=== PATIENT | female | born 1960 | race Caucasian/White ===

== ENCOUNTER → 2017-06-02 | Outpatient (CLI) | payer OTHER ==
--- NOTE | 2017-06-06 07:36 | MM ---
Reason for exam: screening (asymptomatic). Last mammogram was performed 1 year and 4 months ago. History: Patient is postmenopausal. Physical Findings: A clinical breast exam by your physician is recommended on an annual basis and results should be correlated with mammographic findings. MG 3D Screening Mammo W/Cad Bilateral CC and MLO view(s) were taken. Prior study comparison: February 12, 2016, bilateral MG screening mammo w CAD. October 27, 2014, bilateral MG screening mammo w CAD. October 09, 2013, bilateral digital screening mammo w/CAD. There are scattered fibroglandular densities. Finding: There are a few typically benign round calcifications in both breasts. There is no discrete abnormality. ASSESSMENT: Benign, BI-RAD 2 RECOMMENDATION: Routine screening mammogram of both breasts in 1 year.
== END | disposition home or self-care (01) ==
LOC: RADMAMWWP 13:23
PROVIDERS: ATTEND Family Medicine
DX: Z12.31 Encounter for screening mammogram for malignant neoplasm of breast (principal)
CPT/HCPCS: 77063; G0202

== ENCOUNTER 2017-08-04 10:49 | Day surgery (SDC) | payer OTHER ==
[~2017-08-04 10:49] MED LIST: LACTATED RINGERS 1,000 ML IV SCH; LIDOCAINE 1% 20 ML VIAL (10MG/ML) FOR IV START INTRADERMA PRN
[2017-08-04 11:15] VITALS: RESP 16; TEMP 98
[2017-08-04] MEDS ORDERED: PROPOFOL 10 MG/ML 20 ML VIAL IV ONE (12:39)
--- NOTE | 2017-08-04 12:58 | P.PCN ---
Date of Procedure: 08/04/17 Procedure(s) Performed: BRIEF HISTORY: Patient is a 57-year-old pleasant female, scheduled for an elective colonoscopy as a part of evaluation of change in bowel habits. She's lately been having alternating diarrhea and constipation for the last 2 months duration. Denies any rectal bleeding. Her father was just diagnosed with colon cancer at age 70. PROCEDURE PERFORMED: Colonoscopy. PREOPERATIVE DIAGNOSIS: Change in bowel habits and family history of colon cancer. IV sedation per Anesthesia. PROCEDURE: After informed consent was obtained, the patient, was brought into the endoscopy unit. IV sedation was administered by Anesthesia under continuous monitoring. Digital rectal examination was normal. Initially the Olympus CF- 160 flexible video colonoscope was then inserted in the rectum, gradually advanced into the cecum without any difficulty. Careful examination was performed as the scope was gradually being withdrawn. Ileocecal valve and the appendiceal orifice were visualized and appeared normal. Prep was excellent. Mucosa of the cecum, ascending colon, transverse colon, descending colon, sigmoid colon, and rectum appeared normal. Retroflexion was performed in the rectum and no lesions were seen. The patient tolerated the procedure well. IMPRESSION: Normal-appearing colon from rectum to cecum with no evidence of colorectal neoplasia . RECOMMENDATIONS: Findings of this examination were discussed with the patient as well as her family. She was advised to have a repeat screening colonoscopy in 5 years because of the family history of colon cancer..
[2017-08-04 13:14] VITALS: BP 139/81; PULSE 75
== END 2017-08-04 13:34 | disposition home or self-care (01) ==
LOC: ORWHC2ENDO 10:49
PROVIDERS: ATTEND Internal Medicine Gastroenterology
DX: R19.7 Diarrhea, unspecified (principal); Z80.0 Family history of malignant neoplasm of digestive organs; E07.9 Disorder of thyroid, unspecified; M79.7 Fibromyalgia; Z79.899 Other long term (current) drug therapy
CPT/HCPCS: 45378; J2704

== ENCOUNTER → 2017-12-21 | Outpatient (CLI) | payer OTHER ==
--- NOTE | 2017-12-21 22:51 | BD ---
EXAMINATION TYPE: MG DEXA axial skeleton. DATE OF EXAM: 12/21/2017 COMPARISON: NONE CLINICAL HISTORY: 57-year-old female hyperthyroidism Height: 5 FT 3 IN Weight: 203 FRAX RISK QUESTIONS: Alcohol (3 or more units per day): NO Family History (Parent hip fracture): NO Glucocorticoids (More than 3mos): NO (Ex: prednisone, prednisolone, methylprednisolone, dexamethasone, and hydrocortisone). History of Fracture in Adulthood: NO Secondary Osteoporosis: 1. Type 1 Diabetes: NO 2. Hyperthyroidism:YES 3. Menopause before 45: YES 4. Malnutrition: NO 5. Chronic liver disease: NO Rheumatoid Arthritis: NO Current Tobacco Use: NO RISK FACTORS HISTORY OF: Family History of Osteoporosis: YES Active: YES Postmenopausal woman: TOTAL HYST AGE 36 MEDICATIONS: How Long: Additional Medications: CYMBALTA,GABAPENTIN,NORCO Additional History: EXAM MEASUREMENTS: Bone mineral densitometry was performed using the [email or web address] System. Bone mineral density as measured about the Lumbar spine is: ----- L1-L4(G/cm2): 0.875 T Score Values are as follows: ----- L2: -3.7 ----- L3: -2.6 ----- L4: -1.8 ----- L1-L4: -2.5 Bone mineral density has: DECREASED -7.8 % since study of: 2007 Bone mineral density about the R hip (g/cm2): 0.875 Bone mineral density about the L hip (g/cm2): 0.905 T Score values are as follows: -----R Neck: -1.2 -----L Neck: -1.0 -----R Total: -0.2 -----L Total: -0.1 Bone mineral density has: DECREASED -0.7 % since study of: 2007 IMPRESSION: Osteoporosis (T Score less than -2.5 in the lumbar spine). There is increased fracture risk and therapy is usually indicated based on age. Re-Screen 1-2 years. NOTE: T-SCORE=SD OF THE YOUNG ADULT MEAN.
== END | disposition home or self-care (01) ==
LOC: RADBDWWP 15:28
PROVIDERS: ATTEND Family Medicine
DX: M81.0 Age-related osteoporosis without current pathological fracture (principal); E21.3 Hyperparathyroidism, unspecified
CPT/HCPCS: 77080

== ENCOUNTER 2018-03-06 15:15 | Observation (INO) | payer OTHER ==
--- NOTE | 2018-03-06 15:14 | XR ---
EXAMINATION TYPE: XR abdomen 1V DATE OF EXAM: 03/06/2018 3:01 PM CLINICAL HISTORY: Left lower quadrant pain into flank. Interstitial cystitis per order. TECHNIQUE: Two frontal KUB images of the abdomen are obtained. COMPARISON: None. FINDINGS: There is some paucity of small bowel gas. Gas is seen in nondistended stomach. Some gas is visualized in nondistended small bowel loops over the pelvis. Gas and fecal material is seen in non-d istended colon. Right-sided pelvic phleboliths are seen. There is spurring and disc space narrowing a t lumbosacral junction. IMPRESSION: Overall nonspecific but favor nonobstructive bowel gas pattern.
[2018-03-06] MEDS ORDERED: ONDANSETRON 4 MG/2 ML VIAL IVP STA (15:50)
[2018-03-06] MEDS ORDERED: SODIUM CHLORIDE 0.9% 1,000 ML IV ONE (15:50)
[2018-03-06] MEDS ORDERED: KETOROLAC 30 MG/ML 1 ML VIAL IVP STA (15:50)
--- NOTE | 2018-03-06 15:55 | ED ---
General Adult HPI - General Chief complaint: Syncope Stated complaint: Syncope Time Seen by Provider: 03/06/18 15:40 - History of Present Illness Initial comments: Patient is a 57-year-old female with a history of fibromyalgia who presents to the chief complaint of syncope. Patient was in the hospital for an x-ray to evaluate for kidney stone. Patient states that while in x-ray she became very dizzy and lost consciousness briefly. Patient states that she thinks it was secondary to pain. Patient states she's been having left lower quadrant abdominal pain with radiation to her left flank for about [address] Ortiz sent her in for the study. He suspects kidney stone at this time. Patient cannot identify any other inciting incidences. There are no previous episodes. Patient states that sitting up, bending and twisting aggravate her abdominal pain. There are no alleviating factors. Timing is been constant. - Related Data Home Medications Medication Instructions Recorded Confirmed Calcium Carbonate [Calcium] 600 mg PO DAILY 08/02/17 03/06/18 DULoxetine HCL [Cymbalta] 60 mg PO HS 08/02/17 03/06/18 Gabapentin [Neurontin] 400 mg PO PC-LUNCH 08/02/17 03/06/18 Gabapentin [Neurontin] 400 mg PO QAM 08/02/17 03/06/18 Gabapentin [Neurontin] 800 mg PO HS 08/02/17 03/06/18 HYDROcodone/APAP 10-325MG [[place] 1 tab PO Q6H PRN 08/02/17 03/06/18 10-325] DULoxetine HCL [Cymbalta] 30 mg PO QAM 03/06/18 03/06/18 Ergocalciferol [Vitamin D2] 50,000 unit PO TH 03/06/18 03/06/18 [place]-3 Fatty Acids/Fish Oil [Fish 1 cap PO DAILY 03/06/18 03/06/18 Oil 1,000 mg Softgel] Allergies Allergy/AdvReac Type Severity Reaction Status Date / Time No Known Allergies Allergy Verified 03/06/18 15:47 Review of Systems ROS Statement: Those systems with pertinent positive or pertinent negative responses have been documented in the HPI. ROS Other: All systems not noted in ROS Statement are negative. Genitourinary: Reports: hematuria Musculoskeletal: Reports: back pain Neurological: Reports: other (syncope) Past Medical History Past Medical History: Fibromyalgia, Osteoarthritis (OA), Thyroid Disorder Additional Past Medical History / Comment(s): CURRENT: HAS LOST 25 LB & CHANGE IN BOWEL HABITS. HISTORY OF COLON POLYPS. IN THE PROCESS OF RULING OUT RHEUMATOID ARTHRITIS. History of Any Multi-Drug Resistant Organisms: None Reported Past Surgical History: Hysterectomy, Tonsillectomy Additional Past Surgical History / Comment(s): HYST (07-20-1995). Past Anesthesia/Blood Transfusion Reactions: No Reported Reaction, Motion Sickness Past Psychological History: Anxiety Smoking Status: Never smoker Past Alcohol Use History: None Reported Past Drug Use History: None Reported - Past Family History Father Family Medical History: Cancer Additional Family Medical History / Comment(s): COLON, PROSTATE, SKIN CANCER Mother Family Medical History: Cancer Additional Family Medical History / Comment(s): LUNG,. General Exam Limitations: no limitations General appearance: alert, in no apparent distress Head exam: Present: atraumatic, normocephalic Eye exam: Present: PERRL ENT exam: Present: normal exam Neck exam: Present: normal inspection Respiratory exam: Present: normal lung sounds bilaterally. Absent: respiratory distress Cardiovascular Exam: Present: regular rate, normal rhythm GI/Abdominal exam: Present: soft, tenderness (Patient is tenderness in the left lower quadrant. She has positive CVA tenderness on the left). Absent: distended Rectal exam: Present: deferred Extremities exam: Present: normal inspection Back exam: Present: CVA tenderness (L). Absent: CVA tenderness (R) Neurological exam: Present: alert, oriented X3, CN II-XII intact Psychiatric exam: Present: normal affect, normal mood Skin exam: Present: warm, dry, intact Course Vital Signs 03/06/18 15:15 Temperature 97.2 F L Pulse Rate 94 Respiratory 18 Rate Blood Pressure 176/79 O2 Sat by Pulse 97 Oximetry Medical Decision Making - Medical Decision Making Patient presents with a chief complaint of a syncopal episode while in x-ray. She was having a KUB performed for evaluation of kidney stones. Patient states that she thinks she passed out because of the pain. EKG performed at 1538 shows normal sinus rhythm with a rate of 87 bpm. EKG is otherwise unremarkable. Patient will be evaluated with basic labs and sent for a computed tomography scan of the abdomen and pelvis. Neurologic exam is unremarkable. 5:47 PM Lab evaluation of this patient is unremarkable. Urinalysis offered evidence of infection. Computed tomography scan of the abdomen and pelvis shows a 3 mm obstructing ureteral calculus on the left side. Patient still having significant pain and nausea. Decision was made to admit the patient. This case was discussed with Dr. Ortiz accepted admission with consult to urology. I discussed with the patient and her family, they are agreeable. - Lab Data Result diagrams: 03/06/18 15:28 03/06/18 15: Lab Results 03/06/18 03/06/18 03/06/18 Range/Units 15:28 15:28 16:04 WBC 7.3 (3.8-10.6) k/uL RBC 4.62 (3.80-5.40) m/uL Hgb 14.0 (11.4-16.0) gm/dL Hct 39.9 (34.0-46.0) % MCV 86.4 (80.0-100.0) fL MCH 30.3 (25.0-35.0) pg MCHC 35.0 (31.0-37.0) g/dL RDW 13.3 (11.5-15.5) % Plt Count 240 (150-450) k/uL Neutrophils % 58 % Lymphocytes % 29 % Monocytes % 7 % Eosinophils % 2 % Basophils % 1 % Neutrophils # 4.2 (1.3-7.7) k/uL Lymphocytes # 2.1 (1.0-4.8) k/uL Monocytes # 0.5 (0-1.0) k/uL Eosinophils # 0.2 (0-0.7) k/uL Basophils # 0.1 (0-0.2) k/uL Sodium 143 (137-145) mmol/L Potassium 3.8 (3.5-5.1) mmol/L Chloride 104 (98-107) mmol/L Carbon Dioxide 25 (22-30) mmol/L Anion Gap 14 mmol/L BUN 17 (7-17) mg/dL Creatinine 0.70 (0.52-1.04) mg/dL Est GFR (CKD-EPI)AfAm >90 (>60 ml/min/1.73 sqM) Est GFR (CKD-EPI)NonAf >90 (>60 ml/min/1.73 sqM) Glucose 85 (74-99) mg/dL Calcium 9.9 (8.4-10.2) mg/dL Total Bilirubin 0.5 (0.2-1.3) mg/dL AST 29 (14-36) U/L ALT 38 (9-52) U/L Alkaline Phosphatase 102 (38-126) U/L Total Protein 7.1 (6.3-8.2) g/dL Albumin 4.5 (3.5-5.0) g/dL Lipase 101 (23-300) U/L Urine Color Yellow Urine Appearance Clear (Clear) Urine pH 7.0 (5.0-8.0) Ur Specific [place] 1.010 (1.001-1.035) Urine Protein Trace H (Negative) Urine Glucose (UA) Negative (Negative) Urine Ketones Negative (Negative) Urine Blood Large H (Negative) Urine Nitrite Negative (Negative) Urine Bilirubin Negative (Negative) Urine Urobilinogen <2.0 (<2.0) mg/dL Ur Leukocyte Esterase Trace H (Negative) Urine RBC >182 H (0-5) /hpf Urine WBC 39 H (0-5) /hpf Ur Squamous Epith Cells 3 (0-4) /hpf Urine Mucus Rare H (None) /hpf Disposition Clinical Impression: Syncope, Ureteral calculus, left, Intractable abdominal pain Disposition: ADMITTED IP TO THIS [facility] Condition: Good Is patient prescribed a controlled substance at d/c from ED?: No Referrals: Parish Arnold Jr, [Primary Care Provider] - 1-2 days Decision to Admit Reason: Admit from EC - Out of Hospital Transfer - Req. Specs Out of Hospital Transfer - Requested Specifics: Other Non-Acute
[2018-03-06 16:02] LABS: Basophils # (A) 0.1 k/uL (0-0.2); Basophils % (A) 1 %; Eosinophils # (A) 0.2 k/uL (0-0.7); Eosinophils % (A) 2 %; HCT 39.9 % (34.0-46.0); Lymphocytes # (A) 2.1 k/uL (1.0-4.8); Lymphocytes % (A) 29 %; MCH 30.3 pg (25.0-35.0); MCV 86.4 fL (80.0-100.0); Mean Platelet Volume 7.5; Monocytes # (A) 0.5 k/uL (0-1.0); Monocytes % (A) 7 %; Neutrophils # (A) 4.2 k/uL (1.3-7.7); Neutrophils % (A) 58 %; Platelet Count 240 k/uL (150-450); RBC 4.62 m/uL (3.80-5.40); RDW 13.3 % (11.5-15.5); WBC 7.3 k/uL (3.8-10.6)
[2018-03-06 16:11] LABS: ALT 38 U/L (9-52); AST 29 U/L (14-36); Albumin 4.5 g/dL (3.5-5.0); Alkaline Phosphatase 102 U/L (38-126); Anion Gap 14 mmol/L; Blood Urea Nitrogen 17 mg/dL (7-17); Calcium 9.9 mg/dL (8.4-10.2); Carbon Dioxide 25 mmol/L (22-30); Chloride 104 mmol/L (98-107); Glucose 85 mg/dL (74-99); Lipase 101 U/L (23-300); Potassium 3.8 mmol/L (3.5-5.1); Sodium 143 mmol/L (137-145); Total Bilirubin 0.5 mg/dL (0.2-1.3); Total Protein 7.1 g/dL (6.3-8.2)
[2018-03-06 16:25] LABS: Appearance,Urine Clear (Clear); Bilirubin,Urine Negative (Negative); Blood,Urine Large (Negative); Color,Urine Yellow; Glucose,Urine (UA) Negative (Negative); Ketones,Urine Negative (Negative); Leukocyte Esterase,Urine Trace (Negative); Mucus,Urine Rare /hpf; Nitrite,Urine Negative (Negative); Protein,Urine Trace (Negative); RBC,Urine >182 /hpf (0-5); Squamous Epithelial Cell,Urine 3 /hpf (0-4); Urobilinogen,Urine <2.0 mg/dL (<2.0); WBC,Urine 39 /hpf (0-5)
--- NOTE | 2018-03-06 16:52 | CT ---
EXAMINATION TYPE: CT renal stones wo con DATE OF EXAM: 03/06/2018 COMPARISON: NONE HISTORY: LLQ pain and hematuria CT DLP: 1068.9 mGycm Examination of the solid and hollow viscera is limited given the lack of contrast. FINDINGS: LUNG BASES: No evidence for nodule. No evidence for infiltrate. LIVER/GB: Moderate hepatic steatosis. The gallbladder is unremarkable. No space-occupying hepatic les ion. PANCREAS: No pancreatic mass identified. No inflammatory process seen. SPLEEN: No evidence for splenomegaly. No intrasplenic lesions seen. ADRENALS: No adrenal nodules identified. No evidence for thickening. KIDNEYS: There is mild left-sided hydronephrosis secondary to a distal left ureteral calculus measuri ng 3 mm identified on axial image 117 sequence3. 2 mm nonobstructing calculus right kidney. BOWEL: Appendix has a normal appearance. No evidence of bowel obstruction. No inflammatory process. Lymph nodes: No evidence for adenopathy greater than 1 cm. Abdominal aorta: Atheromatous changes seen. No evidence for aneurysm. Genital organs: No significant abnormality. Other: No significant abnormality. Degenerative changes lumbar spine. Mild curvature convex to the ri ght. IMPRESSION: There is mild left-sided hydronephrosis secondary to a distal left ureteral calculus measuring 3 mm i dentified on axial image 117 sequence3.
[2018-03-06] MEDS ORDERED: MORPHINE SULFATE 4 MG/ML SYRINGE IV PRN (17:44)
[2018-03-06] MEDS ORDERED: NALOXONE 0.4 MG/ML 1 ML VIAL IV PRN (17:44)
[2018-03-06] MEDS ORDERED: cefTRIAXone IN SWFI 1,000 MG/10 ML SYRINGE IVP ONE (17:45)
[2018-03-06] MEDS: SODIUM CHLORIDE 0.9% 1,000 ML IV SCH ×2 (18:34→23:46)
[2018-03-06 19:36] VITALS: BMI 34.3
[2018-03-06] MEDS ORDERED: TAMSULOSIN 0.4 MG CAP.ER.24H PO STA (20:08)
[2018-03-06] MEDS ORDERED: GABAPENTIN 400 MG CAP PO SCH (21:15)
[2018-03-06] MEDS: KETOROLAC 30 MG/ML 1 ML VIAL IVP PRN (21:15)
[2018-03-06] MEDS ORDERED: DULoxetine HCL 60 MG CAPSULE.DR PO SCH (21:15)
[2018-03-06] MEDS: MORPHINE ORAL SOLN 10 MG/5 ML CUP PO PRN (22:45)
[2018-03-07] MEDS: KETOROLAC 30 MG/ML 1 ML VIAL IVP PRN ×2 (02:19→09:34)
[2018-03-07] MEDS: MORPHINE ORAL SOLN 10 MG/5 ML CUP PO PRN ×4 (03:42→15:04)
[2018-03-07 08:04] VITALS: BP 110/69; PULSE 76; RESP 16; TEMP 97.6
[2018-03-07 08:29] LABS: Basophils # (A) 0.1 k/uL (0-0.2); Basophils % (A) 2 %; Eosinophils # (A) 0.2 k/uL (0-0.7); Eosinophils % (A) 4 %; HCT 37.6 % (34.0-46.0); HGB 12.8 gm/dL (11.4-16.0); Lymphocytes # (A) 2.3 k/uL (1.0-4.8); Lymphocytes % (A) 41 %; MCH 29.8 pg (25.0-35.0); MCV 87.6 fL (80.0-100.0); Mean Platelet Volume 7.4; Monocytes # (A) 0.4 k/uL (0-1.0); Monocytes % (A) 7 %; Neutrophils # (A) 2.5 k/uL (1.3-7.7); Neutrophils % (A) 44 %; Platelet Count 230 k/uL (150-450); RDW 13.4 % (11.5-15.5); WBC 5.7 k/uL (3.8-10.6)
[2018-03-07 08:48] LABS: Anion Gap 11 mmol/L; Blood Urea Nitrogen 13 mg/dL (7-17); Calcium 8.9 mg/dL (8.4-10.2); Carbon Dioxide 30 mmol/L (22-30); Chloride 103 mmol/L (98-107); Glucose 100 mg/dL (74-99); Potassium 3.7 mmol/L (3.5-5.1); Sodium 144 mmol/L (137-145)
[2018-03-07] MEDS ORDERED: GABAPENTIN 400 MG CAP PO SCH ×2 (09:00→13:30)
[2018-03-07] MEDS ORDERED: DULoxetine HCL 30 MG CAPSULE.DR PO SCH (09:00)
[2018-03-07] MEDS ORDERED: cefTRIAXone IN SWFI 1,000 MG/10 ML SYRINGE IVP SCH (09:00)
[2018-03-07] MEDS: SODIUM CHLORIDE 0.9% 1,000 ML IV SCH (09:40)
--- NOTE | 2018-03-07 12:58 | P.GSCN ---
History of Present Illness Consult date: 03/07/18 Reason for Consult: Left ureteral calculus History of present illness: The patient is a 57-year-old female first developed crampy pains in the suprapubic region 2 or 3 days ago. The pain seemed to shift to the left lower quadrant and was associated with nausea and an episode of gross hematuria. She was evaluated by Dr. Ortiz and a computed tomography scan of the abdomen and pelvis without IV contrast was obtained yesterday. This showed mild left hydronephrosis secondary to to what was described as a 3 mm distal left ureteral calculus. Patient apparently experienced severe pain and syncopal episode following the computed tomography scan and was evaluated in the emergency room. She was afebrile. Her white blood count was 7300. BUN/ creatinine was 17/0.7. Urinalysis showed 39 white cells greater than 182 red cells 3 epithelial cells rare mucus and was negative for nitrite. The patient was felt to have possible sepsis from a urinary tract infection and was started on ceftriaxone and admitted for further evaluation. She continues to have intermittent pain in the left flank which has been had with IV morphine and ketorlac. She has remained afebrile The patient has no previous history of urolithiasis. She says she normally voids every 3-5 hours during the day and once or twice at night. This pattern has not changed recently. She denies fever or chills. She does have a history of hypercalcemia secondary to either parathyroid hyperplasia or parathyroid nodules and underwent removal of 2 parathyroid glands at the [facility]. Review of Systems - Constitutional Reports sweats, Denies chills, Denies fever - Cardiovascular Denies chest pain, Denies shortness of breath - Respiratory Denies cough - Gastrointestinal Reports as per HPI, Denies constipation - Genitourinary Genitourinary: Reports as per HPI Past Medical History Past Medical History: Fibromyalgia, Osteoarthritis (OA), Thyroid Disorder Additional Past Medical History / Comment(s): CURRENT: HAS LOST 25 LB & CHANGE IN BOWEL HABITS. HISTORY OF COLON POLYPS. IN THE PROCESS OF RULING OUT RHEUMATOID ARTHRITIS. History of hyperparathyroidism treated with removal of 2 parathyroid glands History of Any Multi-Drug Resistant Organisms: None Reported Past Surgical History: Hysterectomy, Tonsillectomy Additional Past Surgical History / Comment(s): HYST (07-20-1995). Past Anesthesia/Blood Transfusion Reactions: No Reported Reaction, Motion Sickness Past Psychological History: Anxiety Smoking Status: Never smoker Past Alcohol Use History: None Reported Past Drug Use History: None Reported - Past Family History Father Family Medical History: Cancer Additional Family Medical History / Comment(s): COLON, PROSTATE, SKIN CANCER Mother Family Medical History: Cancer Additional Family Medical History / Comment(s): LUNG,. Medications and Allergies Home Medications Medication Instructions Recorded Confirmed Type Calcium Carbonate [Calcium] 600 mg PO DAILY 08/02/17 03/06/18 History DULoxetine HCL [Cymbalta] 60 mg PO HS 08/02/17 03/06/18 History Gabapentin [Neurontin] 400 mg PO PC-LUNCH 08/02/17 03/06/18 History Gabapentin [Neurontin] 400 mg PO QAM 08/02/17 03/06/18 History Gabapentin [Neurontin] 800 mg PO HS 08/02/17 03/06/18 History HYDROcodone/APAP 10-325MG [[place] 1 tab PO Q6H PRN 08/02/17 03/06/18 History 10-325] DULoxetine HCL [Cymbalta] 30 mg PO QAM 03/06/18 03/06/18 History Ergocalciferol [Vitamin D2] 50,000 unit PO TH 03/06/18 03/06/18 History [place]-3 Fatty Acids/Fish Oil [Fish 1 cap PO DAILY 03/06/18 03/06/18 History Oil 1,000 mg Softgel] Allergies Allergy/AdvReac Type Severity Reaction Status Date / Time No Known Allergies Allergy Verified 03/06/18 15:47 Surgical - Exam Vital Signs Temp Pulse Resp BP Pulse Ox 97.2 F L 94 18 176/79 97 03/06/18 15:15 03/06/18 15:15 03/06/18 15:15 03/06/18 15:15 03/06/18 15:15 - General well developed, moderate distress - Neck no masses, no lymphadectomy - Respiratory normal respiratory effort - Abdomen Abdomen: tender (Right lower quadrant and left lower quadrant) Results - Labs 03/07/18 08:00 03/07/18 08:00 Abnormal Lab Results - Last 24 Hours (Table) 03/06/18 03/07/18 Range/Units 16:04 08:00 Glucose 100 H (74-99) mg/dL Urine Protein Trace H (Negative) Urine Blood Large H (Negative) Ur Leukocyte Esterase Trace H (Negative) Urine RBC >182 H (0-5) /hpf Urine WBC 39 H (0-5) /hpf Urine Mucus Rare H (None) /hpf Diabetes panel 03/06/18 03/07/18 Range/Units 15:28 08:00 Sodium 143 144 (137-145) mmol/L Potassium 3.8 3.7 (3.5-5.1) mmol/L Chloride 104 103 (98-107) mmol/L Carbon Dioxide 25 30 (22-30) mmol/L BUN 17 13 (7-17) mg/dL Creatinine 0.70 0.58 (0.52-1.04) mg/dL Glucose 85 100 H (74-99) mg/dL Calcium 9.9 8.9 (8.4-10.2) mg/dL AST 29 (14-36) U/L ALT 38 (9-52) U/L Alkaline Phosphatase 102 (38-126) U/L Total Protein 7.1 (6.3-8.2) g/dL Albumin 4.5 (3.5-5.0) g/dL Calcium panel 03/06/18 03/07/18 Range/Units 15:28 08:00 Calcium 9.9 8.9 (8.4-10.2) mg/dL Albumin 4.5 (3.5-5.0) g/dL Pituitary panel 03/06/18 03/07/18 Range/Units 15:28 08:00 Sodium 143 144 (137-145) mmol/L Potassium 3.8 3.7 (3.5-5.1) mmol/L Chloride 104 103 (98-107) mmol/L Carbon Dioxide 25 30 (22-30) mmol/L BUN 17 13 (7-17) mg/dL Creatinine 0.70 0.58 (0.52-1.04) mg/dL Glucose 85 100 H (74-99) mg/dL Calcium 9.9 8.9 (8.4-10.2) mg/dL Adrenal panel 03/06/18 03/07/18 Range/Units 15:28 08:00 Sodium 143 144 (137-145) mmol/L Potassium 3.8 3.7 (3.5-5.1) mmol/L Chloride 104 103 (98-107) mmol/L Carbon Dioxide 25 30 (22-30) mmol/L BUN 17 13 (7-17) mg/dL Creatinine 0.70 0.58 (0.52-1.04) mg/dL Glucose 85 100 H (74-99) mg/dL Calcium 9.9 8.9 (8.4-10.2) mg/dL Total Bilirubin 0.5 (0.2-1.3) mg/dL AST 29 (14-36) U/L ALT 38 (9-52) U/L Alkaline Phosphatase 102 (38-126) U/L Total Protein 7.1 (6.3-8.2) g/dL Albumin 4.5 (3.5-5.0) g/dL Assessment and Plan Assessment: Left flank pain-probably secondary to distal left ureteral calculus. I personally reviewed the patient's computed tomography scan and unfortunately she has several calcifications in the pelvis which could be calculi and the ureter does not appear dilated down to this region. There is a 5 mm diameter calcification near the pelvic brim and a 3 mm calcification within the distal 4- 5 cm of the left ureter, either of which could be an obstructive calculus. The patient's urinalysis is not conclusive for urinary tract infection and may have been contaminated by vaginal fluid. Patient has no clinical signs of sepsis as she has remained afebrile and her white blood count is not particularly elevated. The patient will be treated with analgesics and tamsulosin in hopes that the calculus will pass spontaneously. She will be continued on ceftriaxone pending results of her urine culture. The patient expressed a wish to go home as soon as possible as her had a hip replacement 2 weeks ago and a daughter recently delivered a baby.
--- NOTE | 2018-03-07 14:24 | P.HPIM ---
History of Present Illness H&P Date: 03/07/18 Chief Complaint: syncope 57-year-old female who was at [facility] on 03/06/2018 to have xrays completed that were ordered by her PCP, Dr. Ortiz as patient has been having left lower abdominal pain and left flank pain x 2 days. While in radiology, the patient states she started to feel dizzy and had a syncopal episode. She was transferred to the emergency room for further evaluation. The patient has a history of fibromyalgia, osteoarthritis, and hypothyroidism. She also has a history of anxiety. She is a nonsmoker. Abdominal x-ray: Overall nonspecific but favor nonobstructive bowel gas pattern Renal CT: Mild left-sided hydronephrosis secondary to a distal left ureteral calculus measuring 3 mm Laboratory data: WBC 7.3. Hemoglobin 14.0. Platelet count 240. Sodium 143. Potassium 3.8. BUN 17. Creatinine 0.70. Urinalysis reveals: Clear yellow urine, trace proteinuria, large blood, trace leukocyte esterase, RBC greater than 182, WBC 39, squamous epithelial cells 3, rare mucus The patient was admitted to the hospital under the care of Dr. Ortiz. Consultations were placed to urology. Review of Systems GENERAL: Patient denies fever. Denies chills. EYES: Denies blurred vision. Denies vision changes. Denies eye pain. EARS, NOSE, MOUTH, & THROAT: Denies headache. Denies sore throat. Denies ear pain. RESPIRATORY: Denies cough. Denies shortness of breath. Denies sputum production. Denies hemoptysis. CARDIOVASCULAR: Denies chest pain or pressure. Denies palpitations. Denies arrhythmias. GASTROINTESTINAL: Positive for left flank pain x 2-3 days. Denies diarrhea. Denies constipation. Denies nausea. Denies vomiting. Denies heartburn. Denies blood in the stool. GENITOURINARY: Denies urinary frequency. Denies burning. Denies dysuria. Denies cloudy urine. Denies blood in the urine. MUSCULOSKELETAL: Denies myalgias. Denies joint swelling. Denies decreased range of motion beyond patients baseline. INTEGUMENTARY: Denies pruitis. Denies rash. PSYCHIATRIC: Denies suicidal or homicial ideations. ENDOCRINE: Denies weight change. Denies polydipsia. Denies polyuria. HEMATOLOGIC: Denies bleeding disorders. Past Medical History Past Medical History: Fibromyalgia, Osteoarthritis (OA), Thyroid Disorder Additional Past Medical History / Comment(s): CURRENT: HAS LOST 25 LB & CHANGE IN BOWEL HABITS. HISTORY OF COLON POLYPS. IN THE PROCESS OF RULING OUT RHEUMATOID ARTHRITIS. History of Any Multi-Drug Resistant Organisms: None Reported Past Surgical History: Hysterectomy, Tonsillectomy Additional Past Surgical History / Comment(s): HYST (07-20-1995). Past Anesthesia/Blood Transfusion Reactions: No Reported Reaction, Motion Sickness Past Psychological History: Anxiety Smoking Status: Never smoker Past Alcohol Use History: None Reported Past Drug Use History: None Reported - Past Family History Father Family Medical History: Cancer Additional Family Medical History / Comment(s): COLON, PROSTATE, SKIN CANCER Mother Family Medical History: Cancer Additional Family Medical History / Comment(s): LUNG,. Medications and Allergies Home Medications Medication Instructions Recorded Confirmed Type DULoxetine HCL [Cymbalta] 60 mg PO HS 08/02/17 03/06/18 History Gabapentin [Neurontin] 400 mg PO PC-LUNCH 08/02/17 03/06/18 History Gabapentin [Neurontin] 400 mg PO QAM 08/02/17 03/06/18 History Gabapentin [Neurontin] 800 mg PO HS 08/02/17 03/06/18 History HYDROcodone/APAP 10-325MG [[place] 1 tab PO Q6H PRN 08/02/17 03/06/18 History 10-325] DULoxetine HCL [Cymbalta] 30 mg PO QAM 03/06/18 03/06/18 History Ergocalciferol [Vitamin D2 50,000 unit PO TH 03/06/18 03/06/18 History (DRISDOL)] [place]-3 Fatty Acids/Fish Oil [Fish 1 cap PO DAILY 03/06/18 03/06/18 History Oil 1,000 mg Softgel] Ondansetron Odt [Zofran Odt] 4 mg PO Q8HR PRN #30 tab 03/07/18 Rx Allergies Allergy/AdvReac Type Severity Reaction Status Date / Time No Known Allergies Allergy Verified 03/06/18 15:47 Physical Exam Vitals: Vital Signs Temp Pulse Pulse Resp BP BP Pulse Ox 03/07/18 07:30 97.6 F 76 16 110/69 95 03/07/18 00:00 80 18 05/01/18 21:55 97.7 F 80 18 131/75 95 03/06/18 18:39 97.8 F 90 18 129/60 95 03/06/18 15:15 97.2 F L 94 18 176/79 97 Intake and Output 03/06/18 03/07/18 03/07/18 22:59 06:59 14:59 Intake Total 150 900 Balance 150 900 Intake: Intake, IV Titration 150 900 Amount Sodium Chloride 0.9% 1, 150 900 000 ml @ 100 mls/hr IV . Q10H [facility] Rx#:[id number] Other: Voiding Method Toilet Toilet # Voids 2 Weight 90.718 kg 90.718 kg GENERAL: This is a 57-year-old female in no apparent distress at the time of examination. Pleasant and cooperative. HEENT: Head is atraumatic, normocephalic. Pupils are equal, round, and reactive to light. Sclerae anicteric. Conjunctivae are clear. Mucus membranes of the mouth are moist. Neck is supple. RESPIRATORY: Clear to ausculation. No wheezes, rales, or rhonchi. No use of accessory muscles. Patient maintaining oxygen saturation greater than 92%. No chest wall tenderness is noted on palpation or with deep breathing. CARDIOVASCULAR: Regular rate and rhythm. S1 and S2 noted. No systolic or diastolic murmur auscultated. No JVD noted. No S3 or S4 noted. GASTROINTESTINAL: Left CVA tenderness noted. No distention noted. Abdomen soft and round. Normal active bowel sounds auscultated x 4 quadrants. No pain or tenderness noted upon palpation. INTEGUMENTARY: No cyanosis. No jaundice. No rashes noted. No cellulitis noted. EXTREMITIES: 2+ peripheral pulses. No evidence of peripheral edema. No calf tenderness noted. NEUROLOGIC: Cranial nerves II-XII intact. PSYCHIATRIC: Awake, alert, and oriented X 3. Appropriate affect. Intact judgement and insight. Results CBC & Chem 7: 03/07/18 08:00 03/07/18 08:00 Labs: Abnormal Lab Results - Last 24 Hours (Table) 03/06/18 03/07/18 Range/Units 16:04 08:00 Glucose 100 H (74-99) mg/dL Urine Protein Trace H (Negative) Urine Blood Large H (Negative) Ur Leukocyte Esterase Trace H (Negative) Urine RBC >182 H (0-5) /hpf Urine WBC 39 H (0-5) /hpf Urine Mucus Rare H (None) /hpf Thrombosis Risk Factor Assmnt - Choose All That Apply Any of the Below Risk Factors Present?: Yes Each Factor Represents 1 point: Age 41-60 years Thrombosis Risk Factor Assessment Total Risk Factor Score: 1 Thrombosis Risk Factor Assessment Level: Low Risk Assessment and Plan Plan: ASSESSMENT: Syncopal episode prior to admission, possibly related to severe pain Mild left-sided hydronephrosis secondary to a distal left ureteral calculus measuring 3 mm Pyuria, possible urinary tract infection, awaiting culture Fibromyalgia Osteoarthritis Hypothyroidism Anxiety, unspecified Obesity: BMI 34.3 PLAN: Urology on consult. Appreciate recommendations and input Continue Rocephin 1gram Q24 hours Home meds as appropriate Monitor labs GI prophylaxis: Protonix 40 mg PO Daily DVT prophylaxis: SCDs to bilateral LE Monitor vital signs and address as appropriate Discharge planning: Patient to return home when stable Further recommendations pending patient's course Nurse practitioner note has been reviewed by physician. Signing provider agrees with the documented findings, assessment, and plan of care.
--- NOTE | 2018-03-07 14:29 | P.DS ---
Providers Date of admission: 03/06/18 18:09 Expected date of discharge: 03/07/18 Attending physician: Viktor Kang Consults: 03/06/18 17:45 Consult Physician Routine Consulting Provider: Mal Neri Consult Reason/Comments: UTI, obstructing ureteral calculus Do you want consulting provider notified?: Yes Primary care physician: [facility] Course: 57-year-old female who was at [facility] on 03/06/2018 to have xrays completed that were ordered by her PCP, Dr. Kang as patient has been having left lower abdominal pain and left flank pain x 2 days. While in radiology, the patient states she started to feel dizzy and had a syncopal episode. She was transferred to the emergency room for further evaluation. The patient has a history of fibromyalgia, osteoarthritis, and hypothyroidism. She also has a history of anxiety. She is a nonsmoker. Abdominal x-ray: Overall nonspecific but favor nonobstructive bowel gas pattern Renal CT: Mild left-sided hydronephrosis secondary to a distal left ureteral calculus measuring 3 mm Laboratory data: WBC 7.3. Hemoglobin 14.0. Platelet count 240. Sodium 143. Potassium 3.8. BUN 17. Creatinine 0.70. Urinalysis reveals: Clear yellow urine, trace proteinuria, large blood, trace leukocyte esterase, RBC greater than 182, WBC 39, squamous epithelial cells 3, rare mucus The patient was evaluated by urology during hospitalization. Patient received a one time dose of Flomax per Dr. Ricci. The hope is that the stone will pass spontaneously. The patient was deemed stable for discharge per Dr. Kang. She is to follow up on an outpatient basis with Dr. Kang and urologist. She is to continue her Morris for pain. Dr. Kang's office to call in prescription for Morris as patient states she needs a refill. Zofran ODT sent to patients preferred pharmacy. She is to discontinue calcium supplements at this time. Patient received Rocephin in the hospital. She can follow up with urine culture results at PCP office for follow up and does not require a rx for abx per dr. kang DISCHARGE DIAGNOSIS: Syncopal episode prior to admission, possibly related to severe pain Mild left-sided hydronephrosis secondary to a distal left ureteral calculus measuring 3 mm Pyuria, possible urinary tract infection, awaiting culture, no evidence of sepsis Fibromyalgia Osteoarthritis Hypothyroidism Anxiety, unspecified Obesity: BMI 34.3 Nurse practitioner note has been reviewed by physician. Signing provider agrees with the documented findings, assessment, and plan of care. Patient Condition at Discharge: Good Plan - Discharge Summary Discharge Rx Participant: Yes New Discharge Prescriptions: New Ondansetron Odt [Zofran Odt] 4 mg PO Q8HR PRN #30 tab PRN Reason: Nausea Continue Gabapentin [Neurontin] 800 mg PO HS HYDROcodone/APAP 10-325MG [[place] 10-325] 1 tab PO Q6H PRN PRN Reason: Pain Gabapentin [Neurontin] 400 mg PO QAM Gabapentin [Neurontin] 400 mg PO PC-LUNCH DULoxetine HCL [Cymbalta] 60 mg PO HS [place]-3 Fatty Acids/Fish Oil [Fish Oil 1,000 mg Softgel] 1 cap PO DAILY Ergocalciferol [Vitamin D2 (DRISDOL)] 50,000 unit PO TH DULoxetine HCL [Cymbalta] 30 mg PO QAM Discontinued Calcium Carbonate [Calcium] 600 mg PO DAILY Discharge Medication List DULoxetine HCL [Cymbalta] 60 mg PO HS 08/02/17 [History] Gabapentin [Neurontin] 400 mg PO PC-LUNCH 08/02/17 [History] Gabapentin [Neurontin] 400 mg PO QAM 08/02/17 [History] Gabapentin [Neurontin] 800 mg PO HS 08/02/17 [History] HYDROcodone/APAP 10-325MG [[place] 10-325] 1 tab PO Q6H PRN 08/02/17 [History] DULoxetine HCL [Cymbalta] 30 mg PO QAM 03/06/18 [History] Ergocalciferol [Vitamin D2 (DRISDOL)] 50,000 unit PO TH 03/06/18 [History] [place]-3 Fatty Acids/Fish Oil [Fish Oil 1,000 mg Softgel] 1 cap PO DAILY [History] Ondansetron Odt [Zofran Odt] 4 mg PO Q8HR PRN #30 tab 03/07/18 [Rx] Follow up Appointment(s)/Referral(s): Parish Arnold Jr, DO [Primary Care Provider] - 2 Weeks Alexander Ricci MD [STAFF PHYSICIAN] - 1 Week Activity/Diet/Wound Care/Special Instructions: Dr. Tran office will send in a new prescription for your Morris Discontinue Calcium until kidney stone resolves Discharge Disposition: HOME SELF-CARE
[2018-03-08] MEDS ORDERED: PANTOPRAZOLE 40 MG TABLET PO SCH (07:30)
[2018-03-08] MEDS ORDERED: ERGOCALCIFEROL 50,000 UNIT CAP PO SCH (09:00)
== END 2018-03-07 15:24 | disposition home or self-care (01) ==
LOC: EC 15:15 → INTOOBSV 18:09 → 5MS5E 18:09 → UNDODISIN 03-07 15:24
PROVIDERS: ADMIT Family Medicine; ATTEND Family Medicine
DX: N13.2 Hydronephrosis with renal and ureteral calculous obstruction (principal); R55 Syncope and collapse; E03.9 Hypothyroidism, unspecified; M79.7 Fibromyalgia; M19.91 Primary osteoarthritis, unspecified site; F41.9 Anxiety disorder, unspecified; E66.9 Obesity, unspecified; Z68.34 Body mass index [BMI] 34.0-34.9, adult; Z79.899 Other long term (current) drug therapy; Z86.010 Personal history of colon polyps; Z90.710 Acquired absence of both cervix and uterus; Z80.42 Family history of malignant neoplasm of prostate; Z80.0 Family history of malignant neoplasm of digestive organs; Z80.1 Family history of malignant neoplasm of trachea, bronchus and lung; Z80.8 Family history of malignant neoplasm of other organs or systems
CPT/HCPCS: 96376 ×2; 96361; 96374; 96375; 99285; 36415; 97161; 80053; 80048; 83690; 85025 ×2; 81001; 74018; 74150; G0378 ×2; J2270; J2405; J0696 ×2; J1885 ×2

== ENCOUNTER → 2018-04-30 | Outpatient (CLI) | payer OTHER ==
--- NOTE | 2018-04-30 23:01 | MR ---
MRI CERVICAL SPINE: CLINICAL HISTORY: Cervical disc disorder C6-C7 level with radiculopathy per order. Headache with neck pain for 6 months causing pain and weakness into both arms and fingers per patient. TECHNIQUE: Multiplanar, multisequence imaging of the cervical spine is performed without IV contrast. COMPARISON: None. FINDINGS: Sagittal images of the cervical spine show the craniocervical junction to appear within nor mal limits. There is 1.2 cm mucous retention cyst or polyp in the inferior right maxillary sinus axia l image 12. The cervical and upper thoracic spinal cord is normal in course, caliber, and signal. Ve rtebral alignment is straightened with slight grade 1 retrolisthesis of C5 on C6. There is mild disc space narrowing C6-C7 level. The vertebral body and intravertebral disk heights otherwise are normal. Small posterior disc herniations are facing anterior thecal sac at C5-C6 and C6-C7 levels on sagitta l images. Mild to moderate anterior spurring C5-C6 and C6-C7 levels is present. The bone marrow signa l intensity is within normal limits. Small hemangioma posterior inferior T2 vertebra is noted. Axial images show the C2-C3, C3-C4, and C4-C5 levels all to appear within normal limits. Axial images at C5-C6 level broad-based left paracentral disc protrusion effacing anterior thecal sac and causing mild bilateral neural foraminal narrowing. Axial images at C6-C7 level show lobulated posterior disc protrusion effacing the anterior thecal sac and causing severe left and mild to moderate right-sided neural foraminal narrowing. Axial images at C7-T1 level are felt to show mild bilateral neural foraminal narrowing due to foramin al spur disc complexes axial image 7. IMPRESSION: Multilevel degenerative changes in cervical spine most prominent at C5-C6 and C6-C7 level s as detailed above.
== END | disposition home or self-care (01) ==
LOC: RADMRIMAIN 18:39
PROVIDERS: ATTEND Family Medicine
DX: M48.02 Spinal stenosis, cervical region (principal); M99.71 Connective tissue and disc stenosis of intervertebral foramina of cervical region; M50.122 Cervical disc disorder at C5-C6 level with radiculopathy; M47.22 Other spondylosis with radiculopathy, cervical region
CPT/HCPCS: 72141

== ENCOUNTER → 2018-06-18 | Outpatient (CLI) | payer OTHER ==
--- NOTE | 2018-06-25 12:04 | MM ---
Reason for exam: screening (asymptomatic). Last mammogram was performed 1 year and 1 month ago. History: Patient is postmenopausal. Physical Findings: A clinical breast exam by your physician is recommended on an annual basis and results should be correlated with mammographic findings. MG Screening Mammo w CAD Bilateral CC and MLO view(s) were taken. Prior study comparison: June 02, 2017, bilateral MG 3d screening mammo w/cad. February 12, 2016, bilateral MG screening mammo w CAD. There are scattered fibroglandular densities. There is no discrete abnormality. No significant changes when compared with prior studies. ASSESSMENT: Negative, BI-RAD 1 RECOMMENDATION: Routine screening mammogram of both breasts in 1 year.
== END | disposition home or self-care (01) ==
LOC: RADMAMWWP 16:40
PROVIDERS: ATTEND Family Medicine
DX: Z12.31 Encounter for screening mammogram for malignant neoplasm of breast (principal)
CPT/HCPCS: 77067

== ENCOUNTER → 2018-09-18 | Outpatient (CLI) | payer OTHER ==
--- NOTE | 2018-09-18 14:38 | CT ---
EXAMINATION TYPE: CT abdomen pelvis wo con DATE OF EXAM: 09/18/2018 COMPARISON: 03/06/2018 HISTORY: Gross hematuria CT DLP: 991 mGycm Automated exposure control for dose reduction was used. TECHNIQUE: Helical acquisition of images was performed from the lung bases through the pelvis. FINDINGS: LUNG BASES: No significant abnormality is appreciated. LIVER/GB: Hepatic parenchyma is diffusely hypoattenuated in comparison to that of the spleen, most co mmonly seen in hepatic steatosis. This finding limits evaluation for hepatic masses. No gross evidenc e of hepatic mass is seen. No intrahepatic biliary ductal dilatation. Focal fatty sparing is seen jacob und the gallbladder fossa. No cholelithiasis. PANCREAS: No significant abnormality is seen. SPLEEN: No significant abnormality is seen. No splenomegaly. ADRENALS: No nodularity or thickening. KIDNEYS: There is a 3 mm nonobstructing calculus within the right midpole. No left-sided renal calcul i are seen. The right-sided renal calculus was present on the prior of 03/06/2018. Urinary bladder is i ncompletely evaluated as it is incompletely distended and without contrast. REPRODUCTIVE ORGANS: No significant abnormality is seen ADENOPATHY: No greater than 1 cm short axis lymph nodes are seen within the abdomen or pelvis. OSSEOUS STRUCTURES: Nonspecific sclerotic lesion is seen within the right acetabulum on series 3 sohail ge 76, unchanged from the prior. Multiple vertebral body hemangiomas are benign. Mild levoscoliotic c urvature of the lumbar spine. BOWEL: Mild circumferential wall thickening of the distal esophagus may relate to esophagitis or inc omplete distention. Mass is less likely although direct visualization could be performed with endosco py. IMPRESSION: 1. STABLE NONOBSTRUCTING 3 MM RIGHT RENAL CALCULUS. NO EVIDENCE OF HYDRONEPHROSIS OR LEFT-SIDED NEPHR OLITHIASIS. NO URINARY BLADDER CALCULI. IF THERE IS FURTHER CONCERN REGARDING GROSS HEMATURIA CT UROG MANAV COULD BE PERFORMED. 2. CIRCUMFERENTIAL DISTAL ESOPHAGEAL WALL THICKENING THAT MAY RELATE TO ESOPHAGITIS, INCOMPLETE DISTE NTION OR LESS LIKELY MASS. ENDOSCOPY OR BARIUM SWALLOW COULD BE CONSIDERED. 3. HEPATIC STEATOSIS.
== END | disposition home or self-care (01) ==
LOC: RADCTMAIN 13:22
PROVIDERS: ATTEND Family Medicine
DX: N20.0 Calculus of kidney (principal)
CPT/HCPCS: 74176

== ENCOUNTER → 2019-01-02 | Outpatient (CLI) | payer OTHER ==
--- NOTE | 2019-01-02 15:30 | MR ---
EXAMINATION TYPE: MR brain wo/w con DATE OF EXAM: 01/02/2019 COMPARISON: NONE HISTORY: 58-year-old female Transient visual loss TECHNIQUE: Multiplanar, multisequence images of the brain and brainstem were acquired before and aft er administration of 9 mL IV Gadavist. Diffusion weighted imaging is performed. FINDINGS: No evidence for acute infarction, hemorrhage, mass, mass effect, midline shift, herniation, effacemen t of basal cisterns, or extra-axial fluid collection. The ventricles and sulci are age-appropriate. Major intracranial flow voids are intact. Degenerative/FLAIR weighted sequences show very mild scattered burden of bright white matter change p rimarily in the bifrontal subcortical and deep white matter regions numbering approximately 6 in the right cerebral hemisphere and 4 and the left cerebral hemisphere. Midline structures demonstrate normal morphology. The craniocervical junction is normal. Post contrast images demonstrate no evidence of pathologic enhancement. Dural venous sinuses are pat ent. Left nasal septal deviation. Mucosal retention cyst floor of the right maxillary sinus with scattered mild mucosal thickening ethmoid air cells. Globes are intact. IMPRESSION: No acute intracranial abnormality seen. Minimal scattered burden of T2 bright white matter change, no nspecific, likely relating to changes of chronic small vessel ischemic disease.
== END ==
LOC: RADMRIMAIN 10:15
PROVIDERS: ATTEND Ophthalmology
DX: R90.89 Other abnormal findings on diagnostic imaging of central nervous system (principal); H53.129 Transient visual loss, unspecified eye
CPT/HCPCS: 82565; 70553; 36415; A9585

== ENCOUNTER → 2019-01-18 | Outpatient (CLI) | payer OTHER ==
--- NOTE | 2019-01-18 16:06 | CT ---
EXAMINATION TYPE: CT abdomen pelvis wo con DATE OF EXAM: 01/18/2019 COMPARISON: 09/18/2018 HISTORY: bilateral flank pain, hematuria. hx of stones. CT DLP: 769.5 mGycm Automated exposure control for dose reduction was used. TECHNIQUE: Helical acquisition of images was performed from the lung bases through the pelvis. FINDINGS: LUNG BASES: No significant abnormality is appreciated. LIVER/GB: Hepatic parenchyma is diffusely hypoattenuated in comparison to that of the spleen, most co mmonly seen in hepatic steatosis. This finding limits evaluation for hepatic masses. Focal fatty spar ing is again seen around the gallbladder fossa. No gross evidence of hepatic mass is seen. No intrahe patic biliary ductal dilatation. No cholelithiasis. PANCREAS: No significant abnormality is seen. SPLEEN: No significant abnormality is seen. ADRENALS: No significant abnormality is seen. KIDNEYS: There is been interval passage of the previously seen 3 mm right renal calculus. No hydronep hrosis of either kidney. FREE AIR: No free air is visualized REPRODUCTIVE ORGANS: No significant abnormality is seen URINARY BLADDER: No significant abnormality is seen. ADENOPATHY: No greater than 1 cm short axis lymph nodes are seen within the abdomen or pelvis. OSSEOUS STRUCTURES: Multiple benign-appearing vertebral body hemangiomas and mild multilevel degener ative changes of the spine are seen.. BOWEL: Mild circumferential distal esophageal wall thickening is similar to the prior. Moderate amou nt retained colonic stool is seen throughout. No dilated large or small bowel. IMPRESSION: 1. EXTENSIVE HEPATIC STEATOSIS. 2. INTERVAL PASSAGE OF THE PREVIOUSLY SEEN RIGHT RENAL CALCULUS. NO HYDRONEPHROSIS OR NEPHROLITHIASIS OF EITHER KIDNEY. NO URINARY BLADDER CALCULI.
== END | disposition home or self-care (01) ==
LOC: RADCTMAIN 15:05
PROVIDERS: ATTEND Family Medicine
DX: K76.0 Fatty (change of) liver, not elsewhere classified (principal)
CPT/HCPCS: 74176

== ENCOUNTER → 2019-02-18 | Outpatient (CLI) | payer OTHER ==
[2019-02-18 14:51] LABS: HCT 37.9 % (34.0-46.0); HGB 12.9 gm/dL (11.4-16.0); MCH 30.7 pg (25.0-35.0); MCHC 33.9 g/dL (31.0-37.0); MCV 90.5 fL (80.0-100.0); Mean Platelet Volume 7.5; Platelet Count 234 k/uL (150-450); RBC 4.19 m/uL (3.80-5.40); RDW 13.1 % (11.5-15.5); WBC 5.5 k/uL (3.8-10.6)
[2019-02-18 18:32] LABS: Folate, Serum 8.2 ng/mL
[2019-02-18 18:35] LABS: Albumin 4.3 g/dL (3.80-4.90); Albumin/Globulin Ratio 2.39 (1.60-3.17); Anion Gap 6.1 mmol/L (4.00-12.00); Calcium 8.8 mg/dL (8.7-10.3); Carbon Dioxide 29.9 mmol/L (21.6-31.8); Globulin 1.8 g/dL (1.6-3.3); Potassium 3.8 mmol/L (3.5-5.5); Total Bilirubin 0.3 mg/dL (0.3-1.2); Total Protein 6.1 g/dL (6.2-8.2)
[2019-02-18 20:53] LABS: Total Protein,CSF 38 mg/dL (12-60)
[2019-02-18 21:04] LABS: Appearance,CSF CLEAR; CSF Tube Number 4; Nucleated Cells, CSF 0 u/L (0-5); Red Blood Cell,CSF 0 u/L (0-10)
[2019-02-20 14:27] LABS: IgG/Albumin Index (CSF) 0.49 (0.00 - 0.77); Immunoglobulin G 946 mg/dL (700 - 1600)
== END | disposition home or self-care (01) ==
LOC: LABWHC1 12:30
PROVIDERS: ATTEND Nurse Practitioner Family
DX: G35 Multiple sclerosis (principal); F03.90 Unspecified dementia, unspecified severity, without behavioral disturbance, psychotic disturbance, mood disturbance, and anxiety; R41.3 Other amnesia
CPT/HCPCS: 36415; 80053; 82040; 82042; 82306; 82607; 82746; 82784; 83090; 83873; 83916; 84157; 84439; 84443; 84481; 85027; 87801; 89050

== ENCOUNTER → 2019-08-30 | Outpatient (CLI) | payer OTHER ==
--- NOTE | 2019-08-30 14:58 | CT ---
EXAMINATION TYPE: CT abdomen pelvis wo con DATE OF EXAM: 08/30/2019 COMPARISON: 01/18/2019 HISTORY: hematuria, painful urination CT DLP: 1006 mGycm Examination of the solid and hollow viscera is limited given the lack of contrast. FINDINGS: LUNG BASES: No evidence for nodule. No evidence for infiltrate. LIVER/GB: The gallbladder is unremarkable. No space-occupying hepatic lesion. PANCREAS: No pancreatic mass identified. No inflammatory process seen. SPLEEN: No evidence for splenomegaly. No intrasplenic lesions seen. ADRENALS: No adrenal nodules identified. No evidence for thickening. KIDNEYS: No evidence for renal mass. No nephrolithiasis. No hydronephrosis. BOWEL: Appendix has a normal appearance. No evidence of bowel obstruction. No inflammatory process. Lymph nodes: No evidence for adenopathy greater than 1 cm. Abdominal aorta: Atheromatous changes seen. No evidence for aneurysm. Genital organs: No significant abnormality. Other: No significant abnormality. IMPRESSION: NO ACUTE PROCESS IDENTIFIED TO ACCOUNT FOR THE PATIENT'S SYMPTOMS.
[2019-08-30 15:16] LABS: HCT 38.7 % (34.0-46.0); HGB 13.2 gm/dL (11.4-16.0); MCH 31.1 pg (25.0-35.0); MCHC 34.1 g/dL (31.0-37.0); Platelet Count 242 k/uL (150-450); RBC 4.25 m/uL (3.80-5.40); RDW 13.2 % (11.5-15.5); WBC 6.7 k/uL (3.8-10.6)
[2019-08-30 15:23] LABS: Albumin 4.1 g/dL (3.5-5.0); Calcium 9.8 mg/dL (8.4-10.2); Potassium 4.1 mmol/L (3.5-5.1); Total Bilirubin 0.4 mg/dL (0.2-1.3); Total Protein 6.9 g/dL (6.3-8.2)
[2019-08-30 15:54] LABS: Lymphocytes # (M) 2.28 k/uL (1.0-4.8); Neutrophils % (M) 57 %; Nucleated Red Blood Cells 0 /100 WBC (0-0); Total Cells Counted 100
== END ==
LOC: RADCTMAIN 14:32
PROVIDERS: ATTEND Nurse Practitioner Family
DX: R31.9 Hematuria, unspecified (principal); Z87.442 Personal history of urinary calculi
CPT/HCPCS: 74176; 80053; 85025; 86780

== ENCOUNTER → 2019-12-16 | Outpatient (CLI) | payer OTHER ==
--- NOTE | 2019-12-17 10:39 | MM ---
Reason for exam: screening (asymptomatic). Last mammogram was performed 1 year and 6 months ago. History: Patient is postmenopausal. Physical Findings: A clinical breast exam by your physician is recommended on an annual basis and results should be correlated with mammographic findings. MG Screening Mammo w CAD Bilateral CC and MLO view(s) were taken. XCCL view(s) were taken of the left breast. Prior study comparison: June 18, 2018, bilateral MG screening mammo w CAD. June 02, 2017, bilateral MG 3d screening mammo w/cad. The breast tissue is heterogeneously dense. This may lower the sensitivity of mammography. There is no discrete abnormality. No significant changes when compared with prior studies. ASSESSMENT: Negative, BI-RAD 1 RECOMMENDATION: Routine screening mammogram of both breasts in 1 year.
== END | disposition home or self-care (01) ==
LOC: RADMAMWWP 12:42
PROVIDERS: ATTEND Family Medicine
DX: Z12.31 Encounter for screening mammogram for malignant neoplasm of breast (principal)
CPT/HCPCS: 77067

== ENCOUNTER → 2020-11-02 | Outpatient (CLI) | payer OTHER ==
--- NOTE | 2020-11-02 18:23 | CT ---
EXAMINATION TYPE: CT chest wo con DATE OF EXAM: 11/02/2020 COMPARISON: NONE HISTORY: Pulmonary nodule. CT DLP: 485.1 mGycm. Automated Exposure Control for Dose Reduction was Utilized. TECHNIQUE: CT scan of the thorax is performed without IV contrast. FINDINGS: LUNGS: There is 5 x 3 mm nodule lateral left lower lobe axial image 37. Mild biapical scarring. No pl eural effusion or pneumothorax seen bilaterally. Patent tracheobronchial tree. MEDIASTINUM: Lack of IV contrast is noted to limit evaluation for mediastinal and especially hilar ad enopathy. There are no definitive greater than 1 cm hilar or mediastinal lymph nodes. No cardiomega ly or pericardial effusion is seen. Heterogeneous mildly enlarged thyroid, correlate for goiter. Mild to moderately gas distended esophagus, correlate for underlying achalasia. OTHER: Visualized liver is heterogeneously hypodense consistent with diffuse fatty infiltration. Chol ecystectomy clips are noted. Multilevel moderate spurring in the thoracic spine. IMPRESSION: There is 5 x 3 mm lateral left lower lobe nodule. Other findings as noted above.
== END | disposition home or self-care (01) ==
LOC: RADCTMAIN 16:49
PROVIDERS: ATTEND Family Medicine
DX: R91.1 Solitary pulmonary nodule (principal)
CPT/HCPCS: 71250

== ENCOUNTER → 2020-11-30 | Outpatient (CLI) | payer MEDICARE, OTHER ==
--- NOTE | 2020-11-30 16:09 | US ---
EXAMINATION TYPE: US thyroid st tissue head/neck DATE OF EXAM: 11/30/2020 COMPARISON: NONE CLINICAL HISTORY: 60-year-old female E04.9 Enlarged thyroid. TECHNIQUE: Multiple sonographic images of the thyroid gland are obtained. FINDINGS: GLAND SIZE: Right Lobe: 4.7 x 1.5 x 1.7 cm Overall Parenchyma: heterogenous Left Lobe: 4.5 x 1.7 x 1.6 cm Overall Parenchyma: heterogeneous Isthmus Thickness: 0.6 cm NODULES RIGHT: # of nodules measured on right: 0 LEFT: # of nodules measured on left: 0 ISTHMUS: # of nodules measured in the isthmus: 0 Bilateral neck scanned, no evidence of lymphadenopathy. IMPRESSION: Heterogeneous glandular parenchyma but without discrete nodules. Correlate for goiter or diffuse thyr oiditis.
== END | disposition home or self-care (01) ==
LOC: RADUSWWP 15:35
PROVIDERS: ATTEND Family Medicine
DX: E04.9 Nontoxic goiter, unspecified (principal)
CPT/HCPCS: 76536

== ENCOUNTER → 2021-01-28 | Outpatient (CLI) | payer MEDICARE, OTHER ==
--- NOTE | 2021-01-28 13:41 | MM ---
Reason for exam: clinical finding. Last mammogram was performed 1 year and 1 month ago. History: Patient is postmenopausal. Indicated problem(s): lump or thickening and pain in both breasts. Physical Findings: Nurse did not find any significant physical abnormalities on exam. MG 3D Diag Mammo W/Cad ISIDORO Bilateral CC, MLO, and XCCL view(s) were taken. Prior study comparison: December 16, 2019, bilateral MG screening mammo w CAD. June 18, 2018, bilateral MG screening mammo w CAD. The breast tissue is heterogeneously dense. This may lower the sensitivity of mammography. There is no discrete abnormality. No significant new findings when compared with previous films. These results were verbally communicated with the patient and result sheet given to the patient on 01/28/21. ASSESSMENT: Negative, BI-RAD 1 RECOMMENDATION: Routine screening mammogram of both breasts in 1 year. Manage patient on a clinical basis.
== END | disposition home or self-care (01) ==
LOC: RADMAMWWP 12:40
PROVIDERS: ATTEND Family Medicine
DX: R92.2 Inconclusive mammogram (principal)
CPT/HCPCS: 77066; G0279; 77062

== ENCOUNTER → 2021-04-21 | Outpatient (CLI) | payer OTHER ==
--- NOTE | 2021-04-21 15:58 | USB ---
EXAMINATION TYPE: US breast limited RT DATE OF EXAM: 04/21/2021 COMPARISON: Earlier same date CLINICAL HISTORY: N63 Lump. Targeted ultrasound was performed at 11-12 o'clock in the region of palpable abnormality. In the righ t breast at 12:00, there is a 1.1 x 0.7 x 1.6 cm hyperechoic ovoid lesion within the subcutaneous fat which most likely represents a lipoma and corresponds well to the patient's palpable abnormality for which there was no mammographic correlate. Multiple lymph nodes are noted in the subpectoral region without definite cortical thickening or enla rgement. IMPRESSION: No sonographic evidence for malignancy. In the region of palpable abnormality in the right breast at 12:00, there is a 1.6 cm hyperechoic ovo id lesion which most likely represents a lipoma. Please correlate clinically. Negative mammogram and/or ultrasound report should not deter biopsy of a clinically suspicious palpab le lesion. Recommendation: Return to annual screening mammogram. Patient is due for her annual screening mammogr am in January 2022. BI-RADS 2, benign.
--- NOTE | 2021-04-22 14:30 | MM ---
Reason for exam: clinical finding. Last mammogram was performed 3 months ago. History: Patient is postmenopausal. Family history of breast cancer in maternal aunt. Took estrogen for 1 year beginning at age 34. Physical Findings: Nurse Summary: 0.5cm nodule in the right breast at 12 o'clock (nurse TM). MG 3D Diag Mammo W/Cad RT CC and MLO view(s) were taken of the right breast. Prior study comparison: January 28, 2021, bilateral MG 3d diag mammo w/cad ISIDORO. December 16, 2019, bilateral MG screening mammo w CAD. There are scattered fibroglandular densities. Prominent right axilla lymph nodes at site of palpable. Recommend ultrasound. These results were verbally communicated with the patient and result sheet given to the patient on 04/21/21. ASSESSMENT: Incomplete: need additional imaging evaluation, BI-RAD 0 RECOMMENDATION: Ultrasound of the right breast.
== END | disposition home or self-care (01) ==
LOC: RADMAMWWP 14:39
PROVIDERS: ATTEND Family Medicine
DX: N63.10 Unspecified lump in the right breast, unspecified quadrant (principal); N64.89 Other specified disorders of breast; Z78.0 Asymptomatic menopausal state; Z80.3 Family history of malignant neoplasm of breast
CPT/HCPCS: 77061; 77065

== ENCOUNTER → 2022-04-19 | Outpatient (CLI) | payer MEDICARE, OTHER ==
--- NOTE | 2022-04-20 10:10 | US ---
EXAMINATION TYPE: US thyroid st tissue head/neck DATE OF EXAM: 04/19/2022 COMPARISON: 11/30/2020 CLINICAL HISTORY: 61-year-old female R22.1 Swelling,mass, lump. Findings: Patient states having probl ems with her vocal cords. Patient states doctor felt thyroid was enlarged. FINDINGS: GLAND SIZE: Right Lobe: 3.8 x 1.4 x 1.5 cm Overall Parenchyma: heterogenous Left Lobe: 4.1 x 1.4 x 1.5 cm Overall Parenchyma: heterogeneous Isthmus Thickness: 0.6 cm Organizational Effectiveness Consultant notes: Bilateral diffusely heterogenous thyroid lobes with nor prominent nodules visualiz ed at time of scan NODULES RIGHT: # of nodules measured on right: 0 LEFT: # of nodules measured on left: 0 ISTHMUS: # of nodules measured in the isthmus: 0 Bilateral neck scanned, no evidence of lymphadenopathy. IMPRESSION: Diffusely heterogeneous glandular parenchyma as seen previously. No discrete nodules.
== END | disposition home or self-care (01) ==
LOC: RADUSWWP 12:10
PROVIDERS: ATTEND Otolaryngology
DX: R22.1 Localized swelling, mass and lump, neck (principal)
CPT/HCPCS: 76536

== ENCOUNTER 2022-04-22 10:43 | Day surgery (SDC) | payer MEDICARE, OTHER ==
[2022-04-21 10:10] VITALS: BMI 39.4
--- NOTE | 2022-04-22 06:59 | HP ---
HISTORY AND PHYSICAL CHIEF COMPLAINT: Chronic laryngitis. HISTORY OF PRESENT ILLNESS: The patient is a pleasant 61-year-old female who was recently seen in my office complaining of having a history of chronic laryngitis. The patient noted that she has also recently been diagnosed as having multiple sclerosis and is currently receiving treatment for that. She is a nonsmoker and never has used any tobacco products. At the time that the patient was seen in the office, clinical examination including indirect laryngoscopy using the headlight and mirror did not reveal any suspicious lesions of the floor of the mouth, right or left piriform sinuses, base of tongue, vallecula, or epiglottis. The anterior portion of the larynx could not be fully evaluated because the patient has an overhanging epiglottis. The patient was given several courses of dexamethasone with each course being for a 10 day period. Upon returning to the office, it was noted that she still had chronic laryngitis. Because of the patient's concern, it was recommended that she undergo a suspension microlaryngoscopy with laser of any possible lesions such as a nodule polyp that might be encountered at the time of surgery. Past medical history reveals that the patient has a has an allergy CALCIUM. PREVIOUS SURGERIES: Include tonsillectomy, adenoidectomy, parathyroidectomy, hysterectomy, benign breast biopsy, cataract surgery, cholecystectomy, and appendectomy. She is 3 para, 3 , 0 miscarriage. Her current medications include Synthroid, gabapentin, duloxetine,Flexeril, bisoprolol, lisinopril, donepezil, memantine, Prilosec, Naproxen, Vicodin, glatiramer, and atorvastatin. REVIEW OF SYSTEMS: Cardiovascular is positive for hypertension. Respiratory is negative. Gastrointestinal is positive for GERD, gastroesophageal reflux disorder. Musculoskeletal system is negative. Metabolic/endocrine system is positive for hypercholesterolemia and hypothyroidism. Neurological is positive for multiple sclerosis. The remainder of the review of systems is essentially unremarkable. PHYSICAL EXAMINATION: The patient is a pleasant 61-year-old female who was alert and cooperative. HEENT examination: Patient is normocephalic. Tympanic membranes are normal. Middle ear spaces are free of any fluid or infection. Pupils equal, round, and react to light and accommodation. Extraocular movements within normal limits. Intranasal examination reveals moderate septal deviation with compensatory hypertrophy of inferior turbinates and a moderate amount of mucus on the mucous membranes and draining down the posterior pharynx. Examination of oropharynx is unremarkable. Indirect laryngoscopy findings were described above in the history of present illness and will not be repeated. The remainder of the head and neck exam is essentially unremarkable. Chest/cardiovascular: Both lung oleary are clear to percussion and auscultation. The patient is in regular sinus rhythm. S1, S2 are present without any murmurs, S3s or S4s. Peripheral pulses are bilaterally symmetrical. Abdomen: There is no evidence any masses, megaly or tenderness. The abdomen is soft. Musculoskeletal/neurological: Within normal limits. Pelvic/rectal examination exam is deferred at this time because the patient has this done on a regular basis at her family physician's office. The remainder of the physical exam is essentially unremarkable. IMPRESSION: Chronic laryngitis, suspect laryngeal lesion. PLAN: The patient is scheduled undergo a suspension microlaryngoscopy with possible laser under general anesthesia in a.m. Attention RNs in the pre-surgical area, I have not ordered any pre-surgical prophylactic antibiotics for this patient. If the pharmacy department sends any pre- surgical prophylactic antibiotics to the pre-surgical area for this patient, that medication should be returned to the pharmacy department. Please make sure that the patient's account is credited appropriately. I have requested that the patient receive 1000 mg of Ofirmev IV to be given once an intravenous line has been established. I have discussed the risks, benefits and alternative therapies for the above-mentioned procedure and for both sedation/analgesia as well as necessary blood product administration, if indicated, as they pertain to this patient. The patient has indicated his or her understanding and acceptance of the risks and procedures discussed. MMODL / IJN: [id number] /
[~2022-04-22 10:43] MED LIST changes: -LACTATED RINGERS 1,000 ML IV SCH; -LIDOCAINE 1% 20 ML VIAL (10MG/ML) FOR IV START INTRADERMA PRN; +Pre Op ABX Message 1 EACH MISC MISCELLANE ONE
[2022-04-22] MEDS ORDERED: ONDANSETRON 4 MG/2 ML VIAL IVP ONE (10:54)
[2022-04-22] MEDS ORDERED: DEXAMETHASONE SOD PHOSPHATE 4 MG/ML 1 ML VIAL IV ONE (10:54)
[2022-04-22] MEDS ORDERED: LACTATED RINGERS 1,000 ML IV SCH (10:54)
[2022-04-22] MEDS ORDERED: MIDAZOLAM 2 MG/2 ML VIAL IV PRN (10:54)
[2022-04-22] MEDS ORDERED: LIDOCAINE 1% (10MG/ML) FOR IV START INTRADERMA PRN (10:54)
[2022-04-22] MEDS ORDERED: HYDROmorphone 0.5 MG/0.5 ML SYRINGE IVP PRN (10:54)
[2022-04-22] MEDS ORDERED: ACETAMINOPHEN IV (For NPO) 1,000 MG/100 ML VIAL IVPB ONE (11:19)
[2022-04-22] MEDS ORDERED: MIDAZOLAM 2 MG/2 ML VIAL IVP ONE (11:33)
[2022-04-22] MEDS ORDERED: ACETAMINOPHEN IV (For NPO) 1,000 MG in EMPTY BAG 1 BAG IVPB ONE (12:15)
[2022-04-22] MEDS ORDERED: LIDOCAINE 2% INJ 20 MG/ML (2 ML VIAL) ONE (12:40)
[2022-04-22] MEDS ORDERED: SUCCINYLCHOLINE CHLORIDE 100 MG/5 ML SYR IV ONE (12:40)
[2022-04-22] MEDS ORDERED: fentaNYL (PF) 50 MCG/ML 2 ML AMP ONE (12:40)
[2022-04-22] MEDS ORDERED: PROPOFOL 10 MG/ML 20 ML VIAL IV ONE (12:40)
[2022-04-22] MEDS ORDERED: MIDAZOLAM 2 MG/2 ML VIAL ONE (12:40)
[2022-04-22] MEDS ORDERED: DEXAMETHASONE SOD PHOSPHATE 10 MG/ML 1 ML VIAL ONE (12:40)
[2022-04-22 13:40] VITALS: TEMP 97.1
[2022-04-22] MEDS ORDERED: HYDROmorphone 0.5 MG/0.5 ML SYRINGE IVP ONE (13:52)
[2022-04-22 14:36] VITALS: RESP 18
[2022-04-22 14:50] VITALS: PULSE 63
[2022-04-22 14:59] VITALS: BP 97/63
--- NOTE | 2022-04-23 12:53 | OP ---
OPERATIVE REPORT DATE OF SURGERY: 04/22/2022 PREOPERATIVE DIAGNOSIS: Chronic laryngitis. 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 ANESTHESIA: General. OPERATIVE PROCEDURE: Suspension microlaryngoscopy with CO2 laser vaporization of a left true vocal cord polyp. OPERATING SURGEON: Dr. Prado. COMPLICATIONS: None. ESTIMATED BLOOD LOSS: Zero. OPERATIVE PROCEDURE DESCRIPTION: The patient was placed on the operating table in supine position, and after uneventful induction and endotracheal intubation, satisfactory general anesthesia was obtained. Next the patient was draped in the usual customary fashion. Following this, the laryngoscope was introduced into the patient's oropharynx and the entire hypopharynx, including the left and right piriform sinuses, base of tongue, valleculae and epiglottis were inspected and found to be free of any suspicious lesions. Next the tip of the laryngoscope was placed at the laryngeal introitus. The Lewy apparatus was attached to the handle of the laryngoscope and the laryngoscope was suspended on the patient's chest. Next, using the Zeiss operating microscope and under magnified visual visualization, one could see that there were two polypoid lesions located at the posterior aspect of the left and the right true vocal cord. These appeared to be the usual benign polyps and therefore no biopsies were taken. The CO2 laser was then placed on the appropriate settings and the left true vocal cord polyp was then vaporized in the usual fashion. Following this, further inspection did not reveal any evidence of any residual tissue. The right true vocal cord polyp was not attended to at this time because of concern about possible webbing. The patient was given 10 mg of Decadron intraoperatively to reduce any postoperative laryngeal . At this point the procedure was terminated. There were no intraoperative complications. The patient tolerated the procedure well and was returned to the recovery room in satisfactory condition. MMODL / IJN: [id number] /
== END 2022-04-22 15:15 | disposition home or self-care (01) ==
LOC: OR 10:43
PROVIDERS: ATTEND Otolaryngology
DX: J37.0 Chronic laryngitis (principal); J38.1 Polyp of vocal cord and larynx; G35 Multiple sclerosis; I10 Essential (primary) hypertension; E78.00 Pure hypercholesterolemia, unspecified; K21.9 Gastro-esophageal reflux disease without esophagitis; E03.9 Hypothyroidism, unspecified; J34.2 Deviated nasal septum; J34.3 Hypertrophy of nasal turbinates; M19.90 Unspecified osteoarthritis, unspecified site; Z88.8 Allergy status to other drugs, medicaments and biological substances; Z79.899 Other long term (current) drug therapy; Z90.49 Acquired absence of other specified parts of digestive tract; Z79.890 Hormone replacement therapy; Z80.0 Family history of malignant neoplasm of digestive organs; Z80.42 Family history of malignant neoplasm of prostate; Z80.1 Family history of malignant neoplasm of trachea, bronchus and lung; Z80.8 Family history of malignant neoplasm of other organs or systems
CPT/HCPCS: 31541; J2250; J1100 ×2; J2405; J3010; J0131; J0330; J2704; J1170; J2001

== ENCOUNTER → 2022-04-27 | Outpatient (CLI) | payer MEDICARE, OTHER ==
[2022-04-27 13:37] VITALS: BP 94/62; PULSE 64; RESP 18; TEMP 97.8
--- NOTE | 2022-04-27 13:39 | P.PAINPG ---
PQRS Measure Charge Sheet Comment: HISTORY OF PRESENT ILLNESS: 61 yr old female as a referral from Dr. Heard today for severe and chronic LBP & tailbone pain x 20 yrs secondary to anterolisthesis, disc bulges, neuroforaminal stenoses, disc herniations, spinal stenosis, BL L3/L4/L5 impingement and facet arthropathy for evaluation. Pt states her pain is localized to the mid-lower aspects of her lumbar spine and radiates to BL lower back (L & R of midline) and upwards towards the thoracic spine. It is 8/10 in intensity, sharp pressure in character. Pain is provoked by standing/sitting for periods of 20 min or more. Pain is palliated with injections from Dr Bailey, PT "a few years ago" but it would flare up her MS, massage therapy from Dr Hill which helped though she stopped as it was too costly for her, alternates with heat & ice, medications (Percocet, Gabapentin), laying supine, swimming, repositioning and rest. PMH: MS, HTN, Hyperlipidemia, Vitamin D Deficiency, Hypothyroidism, Dementia PSH: LESIs (from Dr Bailey), Tonsillectomy SH: Negative x 3 FH: Colon/Prostate/Skin/ Lung CA All: Calcium Meds: See list REVIEW OF ORGAN SYSTEMS: CONSTITUTIONAL: No fevers or chills. No recent weight loss. HEENT: No visual acuity loss, eye pain, difficulties with hearing. No nosebleeds. No difficulty swallowing. RESPIRATORY: Denies any troubles with breathing or dyspnea on exertion. CARDIOVASCULAR: Denies any chest pain, palpitations, or recent heart attacks. GASTROINTESTINAL: Denies fatty food intolerance. Has change in bowel habits and gas bloat. GENITOURINARY: Denies any blood in urine. Has increased urinary frequency. NEUROLOGICAL: + numbness and tingling along the distal extremities. No seizure disorders or headaches. MUSCULOSKELETAL: + back pain SKIN: No skin cancer. No rash. PSYCHIATRIC: Denies current depression or suicidal thoughts. ENDOCRINE: Denies current thyroid disorders. Denies any blood sugar glucose intolerance. HEME/LYMPHATIC: Denies any lumps and bumps around the neck. History of deep venous thrombosis. ALLERGY/IMMUNOLOGY: No immunoglobulin therapy. No immune deficiencies. BREAST: Denies current breast lumps, pain or nipple discharge. Physical Examinations : Constitutional : Cooperative , not in acute distress . HEENT: Neck supple. No Lymphadenopathy. Normal thyroid size . Eyes no ptosis , no icterus, no photophobia . Hearing intact. Normal oropharynx. No Thrush. Respiratory : Chest clear to auscultations bilaterally. No w heezing. No rhonchi. Cardiovascular : Regular rate and rhythm , S1 / S2. No S3 . No S4. Gastrointestinal : Abdomen soft. No tenderness. Bowel sounds x 4. No organomegaly . Genitourinary : Deferred. Neurologic : Cranial nerve II to XII intact. No focal neurological deficits. Psychiatric : alert & oriented x 3. Matching mood & appropriate affect. Judgment & insight intact. Lymphatic No Lymphadenopathy. Musculoskeletal : Cervical Spine Motor strength in the deltoid and biceps: Normal right side. Normal Left side Motor strength biceps and the wrist extensors: Normal right side . Normal left side Motor strength in the triceps muscle: Normal right side. Normal left side Deep tendon reflexes: Normal at the biceps. Normal at Brachioradialis. Normal at triceps Cervical facet loading test: positive bilaterally Spurling test: positive bilaterally Neck distraction test: positive bilaterally Juliet sign: positive bilaterally Lumbar spine Motor strength lower extremities ,thigh and legs 5/5 Right side , 5/5 Left side Deep tendon reflexes : Normal Knee Jerk. Normal Ankle Jerk Vertebral body tenderness over Lumbar facet Loading Test: positive Right / positive Left Range of motion of the lumbar spine Flexion 30 degrees, extension 10 degrees Straight Leg Raise test: Left/ Right positive at degree Jaja test: positive right / positive left. Severe tenderness over the Sacroiliac joint on the Right / Left sides Gaenslen test: positive bilaterally Seated flexion test: positive bilaterally. Sacral spine : Severe tenderness over the Sacroiliac joint: right side / left side Range of motion: Flexion of the lumbar spine <60 degrees Range of motion: Extension of the lumbar spine <20 degrees Gaenslen's Test positive Tal's Test positive Jaja test: positive right side / left side Thigh Thrust Test Sacral Thrust Test Imaging: MRI without contrast of the lumbar spine from 01/21/20 reviewed Assessment/ Plan : BL Sacroiliitis Recommendation of BL SI joint injection. May need a series, up to ever 3 mo, for optimal pain relief. Risks, benefits of procedure discussed and patient verbalized understanding. Denies aspirin or anti- coagulant use or medical history of diabetes. All questions answered. I have spent greater than 50 minutes on patient care today. Dr Solano was available by phone for the evaluation of this patient. The time was used to review the medical records including relevant urine studies and Prescription history (MAPs), review of the available imaging, evaluation and examination of the patient, coordination of care with the medical staff and if applicable referring physicians, as well as creation of the medical record PQRS Narrative: Smoking Status Never smoker Home Medications: Ambulatory Orders Gabapentin [Neurontin] 800 mg PO BID 08/02/17 DULoxetine HCL [Cymbalta] 30 mg PO QAM 03/06/18 Naproxen 500 mg PO BID 09/06/19 lisinopriL [Zestril] 10 mg PO DAILY 09/06/19 Atorvastatin [Lipitor] 10 mg PO HS 04/21/22 Bisoprolol-Hctz 10-6.25 mg [Ziac 10-6.25 MG] 1 tab PO DAILY 04/21/22 Cholecalciferol (Vitamin D3) [Vitamin D3 (125 MCG = 5,000 IU)] 125 mcg PO FR 04/21/22 Cyclobenzaprine [Flexeril] 15 mg PO HS 04/21/22 DULoxetine HCL [Cymbalta] 60 mg PO HS 04/21/22 Donepezil [Aricept] 10 mg PO HS 04/21/22 Levothyroxine Sodium [Synthroid] 100 mcg PO DAILY 04/21/22 Memantine [Namenda] 5 mg PO BID 04/21/22 Ofatumumab [Kesimpta Pen] 20 mg SQ QMONTHLY 04/21/22 Omeprazole [PriLOSEC] 20 mg PO HS 04/21/22 oxyCODONE-APAP 7.5-325MG [Percocet 7.5-325 mg] 1 - 2 tab PO Q6HR PRN 04/21/22 Controlled Substance Measures - Controlled Substance Measures Is patient prescribed a controlled substance at discharge?: No
== END ==
LOC: PNWHC3 12:48
PROVIDERS: ATTEND Specialist
DX: M51.36 Other intervertebral disc degeneration, lumbar region (principal); M48.061 Spinal stenosis, lumbar region without neurogenic claudication; M53.3 Sacrococcygeal disorders, not elsewhere classified; M46.1 Sacroiliitis, not elsewhere classified; Z88.8 Allergy status to other drugs, medicaments and biological substances; I10 Essential (primary) hypertension; E78.5 Hyperlipidemia, unspecified; E03.9 Hypothyroidism, unspecified
CPT/HCPCS: 99211

== ENCOUNTER → 2022-05-17 | Outpatient (CLI) | payer OTHER ==
--- NOTE | 2022-05-18 09:26 | MM ---
Reason for Exam: Screening (asymptomatic). Last mammogram was performed 1 year(s) and 4 month(s) ago. Patient History: Menarche at age 12. First Full-Term at age 23. Left ovary removed at age 34. Right ovary removed at age 34. Hysterectomy at age 34. Postmenopausal. Estrogen for 1 year from age 34 until age 35. Maternal aunt had breast cancer. Risk Values: Lisha 5 year model risk: 1.3%. NCI Lifetime model risk: 6.4%. Prior Study Comparison: 12/16/2019 Bilateral Screening Mammogram, [facility]. 01/28/2021 Bilateral Diagnostic Mammogram, [facility]. 04/21/2021 Right Diagnostic Mammogram, [facility]. Tissue Density: There are scattered fibroglandular densities. Findings: Analyzed By CAD. Benign-appearing bilateral axillary lymph nodes are redemonstrated. There is no suspicious group of microcalcifications or new suspicious mass in either breast. Overall Assessment: Benign, BI-RAD 2 Management: Screening Mammogram of both breasts in 1 year. A clinical breast exam by your physician is recommended on an annual basis and results should be correlated with mammographic findings. Electronically signed and approved by: Yamil Love M.D.
== END | disposition home or self-care (01) ==
LOC: RADMAMWWP 10:58
PROVIDERS: ATTEND Family Medicine
DX: Z12.31 Encounter for screening mammogram for malignant neoplasm of breast (principal); Z78.0 Asymptomatic menopausal state; Z80.3 Family history of malignant neoplasm of breast
CPT/HCPCS: 77063; 77067

== ENCOUNTER → 2022-05-31 | Day surgery (SDC) | payer MEDICARE, OTHER ==
[2022-05-30 12:24] VITALS: BMI 39.4
[~2022-05-31] MED LIST changes: +IV FLUID CONTINUATION 900 ML IV ONE; +LACTATED RINGERS 1,000 ML IV ONE; +LACTATED RINGERS 1,000 ML IV SCH; +LIDOCAINE 1% (10MG/ML) FOR IV START INTRADERMA PRN; +MIDAZOLAM 2 MG/2 ML VIAL ONE; -Pre Op ABX Message 1 EACH MISC MISCELLANE ONE; +ROPIVACAINE 5MG/ML 20ML VIAL ONE; +fentaNYL (PF) 50 MCG/ML 2 ML AMP ONE; +methylPREDNISolone ACETATE 80 MG/ML 1 ML VIAL ONE
[2022-05-31 12:17] VITALS: TEMP 98
--- NOTE | 2022-05-31 12:46 | P.PCN ---
Date of Procedure: 05/31/22 Procedure(s) Performed: Procedure= bilateral sacroiliac joints steroid injection under fluoroscopy guidance (fluoroscopy image stored on file in the radiology Department ) Preoperative diagnosis= 1-sacroiliitis 2-lumbar degenerative disc disease 3- lumbar facet arthropathy Postoperative diagnosis=Same as preop Diagnosis . Complication = none Condition= stable Anesthesia= moderate sedation with intravenous Versed 2 mg , and fentanyl 100 micrograms . Indication for the procedure= patient complaining of low back pain , examination was positive for severe tenderness over the sacroiliac joints bilaterally and patient diagnosed with sacroiliitis, for this reason , she was good candidate for sacroiliac joint steroid injection. Description of the procedure= procedure risk and benefits discussed with the patient, including but not limited, risk of infection and bleeding, and ALLERGIC reaction to the medication and not complete pain relief and patient agreed with the preceding patient taken to the operating room, placed in prone position or standard monitors applied to the patient then after induction of anesthesia back prepped with chlorhexidine 3 times , Then under strict sterile technique, first I did the right sacroiliac joint the which was identified under fluoroscopy guidance been local infiltration of the skin and subcu interstitial with lidocaine 1% then 22-gauge Quincke Needle advanced slowly under fluoroscopy and placed in the right sacroiliac joint needle placement confirmed with AP and oblique and lateral view and after appropriate needle placement confirmed and after negative aspiration, or heme , then Ropivacaine 0.5% 4 mL, and 40 mg of Depo-Medrol mixed together and injected in the right sacroiliac joint after negative aspiration patient tolerated the procedure well without any complication. Then the left sacroiliac joint steroid injection done under strict sterile technique local infiltration of the skin and subcu interstitial at the location of the left sacroiliac joint then a 22-gauge Quincke Needle advanced slowly under fluoroscopy time placed in the left sacroiliac joint, needle placement confirmed with AP and oblique and lateral view then after appropriate needle placement confirmed and after negative aspiration 0.5% Ropivacaine 4 mL and 40 mg of Depo-Medrol injected in the left sacroiliac joint after negative aspiration patient tolerated the procedure well that any complications and she will follow up in clinic 3 weeks
--- NOTE | 2022-05-31 13:02 | FL ---
EXAMINATION TYPE: FL guided pain mgmt statistic DATE OF EXAM: 05/31/2022 HISTORY: Fluoroscopy time 9 seconds of fluoroscopy provided. IMPRESSION: 1. Fluoroscopy time.
[2022-05-31 13:11] VITALS: BP 114/73; PULSE 55; RESP 18
== END ==
LOC: ORPAIN 11:48
PROVIDERS: ATTEND Specialist
DX: M46.1 Sacroiliitis, not elsewhere classified (principal); M51.36 Other intervertebral disc degeneration, lumbar region; M47.816 Spondylosis without myelopathy or radiculopathy, lumbar region; Z88.8 Allergy status to other drugs, medicaments and biological substances; Z79.899 Other long term (current) drug therapy; Z79.1 Long term (current) use of non-steroidal anti-inflammatories (NSAID)
CPT/HCPCS: J2250; J1040; J3010; J2795; G0260; 99152

== ENCOUNTER → 2022-07-06 | Outpatient (CLI) | payer MEDICARE, OTHER ==
[2022-07-06 12:40] VITALS: BP 145/90; PULSE 62; RESP 18; TEMP 98.2
--- NOTE | 2022-07-06 15:04 | P.PAINPG ---
PQRS Measure Charge Sheet Comment: A 62 yr old female with a history of severe and chronic low back pain secondary to lumbar degenerative disc diseases and lumbar spondylosis with facet arthropathy without myelopathy presents today for evaluation s/p BL SI joint injection. Pt states she received 80% pain relief x 4 wks s/p procedure. Pain leo francois is currently at 4/10 in intensity, constant, R aspect of lower lumbar spine, dull/ achy in character w shooting towards the groins. Pain is provoked as high as 7/10 by sitting for periods of 30 min or more. Pain is alleviated with PT scheduled at the end of this month, massage therapy 3 yrs ago, heat, ice, repositioning and rest. Interventional pain procedures completed include BL SI injection. Patient is currently on Oxycodone, Naproxen, Neurontin Patient denies any side effects of the medication(s), denies excessive drowsiness or sleepiness, denies suicidal ideation and reports that the current pain medication is helping to control the pain and improve activities of daily living. Patient denies any motor or sensory deficits. Patient denies any fever or night sweats, denies any change in the bowel movements or urination. Physical Examination: -Constitutional: Cooperative. Not in acute distress . - Neurologic: Cranial nerve II to XII intact. No focal neurological deficits. - Psychatric: Alert & oriented x 3. Matching mood & appropriate affect. Judgment and insight intact. - Musculoskeletal: Cervical spine: Muscle bulk/ tone/ strength in the bilateral upper extremities normal Vertebral body tenderness to palpation over Spurling test positive Distraction test positive Facet loading test positive Thoracic spine Muscle bulk / tone/ strength in the bilateral paraspinal muscles normal Vertebral body tender to palpation over Facet loading test positive Lumbar spine: Motor bulk/ tone/ strength lower extremities , thigh and legs : 5/5 Deep tendon reflexes : Normal Knee Jerk. Normal Ankle Jerk . Vertebral body tenderness to palpation over Lumbar Facet Loading Test positive Straight Leg Raise: positive at 30 degrees right side/ left side Gaenslen's Test positive Sacral spine : Severe tenderness over the Sacroiliac joint: right side / left side Range of motion: Flexion of the lumbar spine <60 degrees Range of motion: Extension of the lumbar spine <20 degrees Gaenslen's Test positive BL Jaja test: positive right side / left side BL Thigh Thrust Test Sacral Thrust Test +BL Assessment and plan: Chronic low back pain secondary to lumbar degenerative disc disease , lumbar spondylosis with facet arthropathy without myelopathy Recommendation of BL SI joint injection #2. May need a series of injecti ons, up to every 3 mo, for optimal pain relief. Risks, benefits of procedure discussed and pt verbalized understanding. Denies anticoagulant use or medical history of diabetes. All patient questions answered I have spent less than 30 minutes on patient care today. Dr Solano was available by phone for the evaluation of this patient. The time was used to review the medical records including relevant urine studies and Prescription history (MAPs), review of the available imaging, evaluation and examination of the patient, coordination of care with the medical staff and if applicable referring physicians, as well as creation of the medical record - Pain Location Right Lower Back Non-Pharmacological Interventions: Heat, Ice, Massage, Position/Reposition Pharmacological Interventions: Scheduled Medication PQRS Narrative: Smoking Status Never smoker Home Medications: Ambulatory Orders Gabapentin [Neurontin] 800 mg PO BID 08/02/17 DULoxetine HCL [Cymbalta] 30 mg PO QAM 03/06/18 Naproxen 500 mg PO BID 09/06/19 lisinopriL [Zestril] 10 mg PO DAILY 09/06/19 Atorvastatin [Lipitor] 10 mg PO HS 04/21/22 Bisoprolol-Hctz 10-6.25 mg [Ziac 10-6.25 MG] 1 tab PO DAILY 04/21/22 Cyclobenzaprine [Flexeril] 15 mg PO HS 04/21/22 DULoxetine HCL [Cymbalta] 60 mg PO HS 04/21/22 Donepezil [Aricept] 10 mg PO HS 04/21/22 Levothyroxine Sodium [Synthroid] 100 mcg PO DAILY 04/21/22 Memantine [Namenda] 5 mg PO BID 04/21/22 Ofatumumab [Kesimpta Pen] 20 mg SQ QMONTHLY 04/21/22 Omeprazole [PriLOSEC] 20 mg PO HS 04/21/22 Diclofenac Sodium Gel [Voltaren Gel] 100 gm TOPICAL BID 30 Days #100 gm 04/27/22 oxyCODONE HCL/ACETAMINOPHEN [Percocet 10-325 mg] 1 - 2 tab PO Q6HR PRN 05/30/22 Controlled Substance Measures - Controlled Substance Measures Is patient prescribed a controlled substance at discharge?: No
== END ==
LOC: PNWHC3 12:02
PROVIDERS: ATTEND Specialist
DX: M51.36 Other intervertebral disc degeneration, lumbar region (principal); M47.816 Spondylosis without myelopathy or radiculopathy, lumbar region; G89.29 Other chronic pain; Z88.9 Allergy status to unspecified drugs, medicaments and biological substances
CPT/HCPCS: 99211

== ENCOUNTER 2022-08-11 12:45 | Day surgery (SDC) | payer MEDICARE, OTHER ==
[2022-08-09 15:59] VITALS: BMI 38.6
[2022-08-11 13:31] VITALS: TEMP 97.4
[2022-08-11] MEDS ORDERED: LACTATED RINGERS 1,000 ML IV ONE ×2 (13:31)
[2022-08-11] MEDS ORDERED: LIDOCAINE 1% (10MG/ML) FOR IV START INTRADERMA ONE (13:31)
[2022-08-11] MEDS ORDERED: fentaNYL (PF) 50 MCG/ML 2 ML AMP ONE (13:48)
[2022-08-11] MEDS ORDERED: MIDAZOLAM 2 MG/2 ML VIAL ONE (13:48)
[2022-08-11] MEDS ORDERED: methylPREDNISolone ACETATE 80 MG/ML 1 ML VIAL ONE (13:48)
[2022-08-11] MEDS ORDERED: ROPIVACAINE 5 MG/ML 20 ML AMPULE ONE (13:48)
--- NOTE | 2022-08-11 14:09 | P.PCN ---
Date of Procedure: 08/11/22 Procedure(s) Performed: Procedure= bilateral sacroiliac joints steroid injection under fluoroscopy guidance (fluoroscopy image stored on file in the radiology Department ) Preoperative diagnosis= 1-sacroiliitis 2-lumbar degenerative disc disease 3- lumbar facet arthropathy Postoperative diagnosis=Same as preop Diagnosis . Complication = none Condition= stable Anesthesia= moderate sedation with intravenous Versed 2 mg , and fentanyl 100 micrograms . Sedation start time 1349. Sedation end time 1406 Indication for the procedure= patient complaining of low back pain , examination was positive for severe tenderness over the sacroiliac joints bilaterally and patient diagnosed with sacroiliitis, for this reason , she was good candidate for sacroiliac joint steroid injection. Description of the procedure= procedure risk and benefits discussed with the pat ient, including but not limited, risk of infection and bleeding, and ALLERGIC reaction to the medication and not complete pain relief and patient agreed with the preceding patient taken to the operating room, placed in prone position or standard monitors applied to the patient then after induction of anesthesia back prepped with chlorhexidine 3 times , Then under strict sterile technique, first I did the right sacroiliac joint the which was identified under fluoroscopy guidance been local infiltration of the skin and subcu interstitial with lidocaine 1% then 22-gauge Quincke Needle advanced slowly under fluoroscopy and placed in the right sacroiliac joint needle placement confirmed with AP and oblique and lateral view and after appropriate needle placement confirmed and after negative aspiration, or heme , then Ropivacaine 0.5% 4 mL, and 40 mg of Depo-Medrol mixed together and injected in the right sacroiliac joint after negative aspiration patient tolerated the procedure well without any complication. Then the left sacroiliac joint steroid injection done under strict sterile technique local infiltration of the skin and subcu interstitial at the location of the left sacroiliac joint then a 22-gauge Quincke Needle advanced slowly under fluoroscopy time placed in the left sacroiliac joint, needle placement confirmed with AP and oblique and lateral view then after appropriate needle placement confirmed and after negative aspiration 0.5% Ropivacaine 4 mL and 40 mg of Depo-Medrol injected in the left sacroiliac joint after negative aspiration patient tolerated the procedure well that any complications and she will follow up in clinic in few weeks.
[2022-08-11] MEDS ORDERED: IV FLUID CONTINUATION 1,000 ML IV ONE (14:13)
--- NOTE | 2022-08-11 14:16 | FL ---
Intraoperative/procedural fluoroscopic services were provided for bilateral SI joint injections. Tota l fluoroscopy time is 5 seconds with a total of 2 submitted images to PACS. Please see the operative note for further details.
[2022-08-11 14:22] VITALS: RESP 16
[2022-08-11 15:00] VITALS: BP 95/64; PULSE 62
== END 2022-08-11 15:02 | disposition home or self-care (01) ==
LOC: ORPAIN 12:45
PROVIDERS: ATTEND Specialist
DX: M46.1 Sacroiliitis, not elsewhere classified (principal); M51.36 Other intervertebral disc degeneration, lumbar region; M47.816 Spondylosis without myelopathy or radiculopathy, lumbar region; Z91.09 Other allergy status, other than to drugs and biological substances
CPT/HCPCS: 99152; J2250; J1040; J3010; J2795; G0260

== ENCOUNTER 2022-08-26 08:22 | Day surgery (SDC) | payer MEDICARE, OTHER ==
[2022-08-24 16:09] VITALS: BMI 38.7
--- NOTE | 2022-08-25 21:16 | HP ---
HISTORY AND PHYSICAL CHIEF COMPLAINT: Chronic laryngitis. HISTORY OF PRESENT ILLNESS: The patient is a pleasant 62-year-old female, who was previously scheduled to undergo a suspension microlaryngoscopy with CO2 laser of a lesion of the right true vocal cord on 07/05/2022. The patient's surgery was cancelled because the patient's developed illness. She has previously undergone a suspension microlaryngoscopy with CO2 laser vaporization of polyps on the left true vocal cord. She is brought to surgery at this time to attend to the lesion on her right true vocal cord with the CO2 laser. PAST MEDICAL HISTORY: Reveals she has an allergy to calcium. PREVIOUS SURGERIES: Include suspension microlaryngoscopy with CO2 laser of the left true vocal cord, tonsillectomy, adenoidectomy, parathyroidectomy, hysterectomy, benign breast biopsy, cataract surgery, cholecystectomy, and appendectomy. She is 3 , 3 para, 0 miscarriage. CURRENT MEDICATIONS: Include: 1. Synthroid. 2. Neurontin. 3. Duloxetine. 4. Flexeril. 5. Bisoprolol. Also other medications include: 1. Lisinopril. 2. Donepezil. 3. Memantine. 4. Prilosec. 5. Naproxen. 6. Vicodin. 7. Atorvastatin. 8. She is also on glatiramer. REVIEW OF SYSTEMS: CARDIOVASCULAR: Positive for hypertension and cardiac arrhythmia. GASTROINTESTINAL: Positive for GERD(gastroesophageal reflux disorder). METABOLIC/ENDOCRINE: Positive for hypercholesterolemia and hypothyroidism. NEUROLOGICAL: Positive for multiple sclerosis. The remainder of the review of systems is essentially unremarkable. PHYSICAL EXAMINATION: GENERAL: The patient is a very pleasant 62-year-old female, who is alert and cooperative. HEENT: The patient is normocephalic. Tympanic membranes are normal. Middle ear spaces are free of any fluid or infection. Pupils equal, round, react to light and accommodation. Extraocular movements within normal limits. Intranasal examination reveals moderate to severe septal deviation with compensatory hypertrophy, inferior turbinates. Examination of the oropharynx including indirect laryngoscopy using headlight and mirror reveals a polypoid-like lesion along the right true vocal cord. The remainder of the head and neck exam is essentially unremarkable. CHEST/CARDIOVASCULAR: Lung oleary are clear to percussion and auscultation. The patient is in regular sinus rhythm. S1 and S2 are present without evidence of any murmurs, S3s or S4s. Peripheral pulses are bilaterally symmetrical and within normal limits. ABDOMEN: There is no evidence of any masses, megaly, or tenderness. The abdomen is soft. SKIN: Unremarkable. MUSCULOSKELETAL/NEUROLOGICAL: Within normal limits at this time. PELVIC/RECTAL: Deferred at this time because the patient has this done on a regular basis at her family physician's office. The remainder of physical exam is unremarkable. 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 PLAN: The patient is scheduled to undergo a suspension microlaryngoscopy with CO2 laser vaporization of a right true vocal cord lesion under general anesthesia. Attention, RNs in the pre-surgical area: I have not ordered any pre-surgical prophylactic antibiotics for this patient. If the pharmacy department sends any pre- surgical prophylactic antibiotics to the pre-surgical area for this patient, then that order should be cancelled, and the medication should be returned to the pharmacy department. Also, please make sure that the patient's account is credited appropriately. I have ordered for this patient to receive 1000 mg of Ofirmev IV to be given once an intravenous line has been established. I have discussed the risks, benefits and alternative therapies for the above-mentioned procedure and for both sedation/analgesia as well as necessary blood product administration, if indicated, as they pertain to this patient. The patient has indicated her understanding and acceptance of the risks and procedures discussed. MMODL / IJN: [id number] /
[~2022-08-26 08:22] MED LIST changes: +HYDROmorphone 0.5 MG/0.5 ML SYRINGE IVP PRN; -IV FLUID CONTINUATION 900 ML IV ONE; -LACTATED RINGERS 1,000 ML IV ONE; -LIDOCAINE 1% (10MG/ML) FOR IV START INTRADERMA PRN; +MIDAZOLAM 2 MG/2 ML VIAL IV PRN; -MIDAZOLAM 2 MG/2 ML VIAL ONE; +ONDANSETRON 4 MG/2 ML VIAL IVP ONE; +Pre Op ABX Message 1 EACH MISC MISCELLANE ONE; -ROPIVACAINE 5MG/ML 20ML VIAL ONE; +SCOPOLAMINE 1 MG/72 HR PATCH TRANSDERM ONE; -fentaNYL (PF) 50 MCG/ML 2 ML AMP ONE; -methylPREDNISolone ACETATE 80 MG/ML 1 ML VIAL ONE
[2022-08-26] MEDS ORDERED: DEXAMETHASONE SOD PHOSPHATE 4 MG/ML 1 ML VIAL IVP ONE (09:15)
[2022-08-26] MEDS ORDERED: ACETAMINOPHEN IV (For NPO) 1,000 MG in EMPTY BAG 1 BAG IVPB ONE (10:00)
[2022-08-26] MEDS ORDERED: fentaNYL (PF) 50 MCG/ML 2 ML AMP ONE (10:24)
[2022-08-26] MEDS ORDERED: PROPOFOL 10 MG/ML 20 ML VIAL IV ONE (10:24)
[2022-08-26] MEDS ORDERED: MIDAZOLAM 2 MG/2 ML VIAL ONE (10:24)
[2022-08-26] MEDS ORDERED: SUCCINYLCHOLINE CHLORIDE 200 MG/10 ML VIAL IV ONE (10:24)
[2022-08-26] MEDS ORDERED: LIDOCAINE 2% INJ 20 MG/ML (2 ML VIAL) ONE (10:24)
[2022-08-26] MEDS ORDERED: LACTATED RINGERS 1,000 ML IV ONE (11:20)
[2022-08-26 11:30] VITALS: TEMP 99.8
[2022-08-26 12:26] VITALS: RESP 20
[2022-08-26] MEDS ORDERED: oxyCODONE-APAP 5-325MG 1 EACH TAB ONE ×2 (12:32→12:35)
[2022-08-26] MEDS ORDERED: oxyCODONE-APAP 5-325MG 1 EACH TAB PO ONE (12:38)
[2022-08-26 13:19] VITALS: BP 109/76; PULSE 70
--- NOTE | 2022-08-29 01:13 | OP ---
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 POSTOPERATIVE DIAGNOSIS: Chronic laryngitis with right true vocal cord polyp. ANESTHESIA: General. OPERATIVE PROCEDURE: Suspension microlaryngoscopy with CO2 laser vaporization of right true vocal cord polyp. COMPLICATIONS: None. ESTIMATED BLOOD LOSS: Zero. DESCRIPTION OF PROCEDURE: The patient was placed on the operating table in the supine position and after uneventful induction and endotracheal intubation, satisfactory general anesthesia was obtained. Next, the patient was draped in the usual customary fashion. Following this, the laryngoscope was introduced into the oropharynx and the entire hypopharynx including the right and left piriform sinuses, base of tongue, valleculae and epiglottis were inspected and found to be free of any suspicious lesions. Next, the tip of the laryngoscope was placed at the laryngeal antritis, the Lewy apparatus was attached to the handle of the laryngoscope and the laryngoscope was suspended on the patient's chest. Next, under direct visualization, one could see that there was a polypoid lesion on the right true vocal cord. Next, using the CO2 laser set on the appropriate setting of 2.5 caceres, the vocal cord polyp lesion was vaporized off the right true vocal cord with the CO2 laser. The patient was given 10 mg of Decadron intraoperatively to reduce any postoperative laryngeal edema. It was to be noted that the patient's multiple scleroses apparently does somewhat affect her larynx just observing the general appearance of the laryngeal structures. At this point, procedure was terminated. There were no intraoperative complications. The patient tolerated the procedure well and was returned to the recovery room in satisfactory condition. MMODL / IJN: [id number] /
== END 2022-08-26 13:16 | disposition home or self-care (01) ==
LOC: OR 08:22
PROVIDERS: ATTEND Otolaryngology
DX: J37.0 Chronic laryngitis (principal); J38.1 Polyp of vocal cord and larynx; Z90.89 Acquired absence of other organs; Z90.710 Acquired absence of both cervix and uterus; Z98.49 Cataract extraction status, unspecified eye; Z90.49 Acquired absence of other specified parts of digestive tract; Z79.890 Hormone replacement therapy; Z79.899 Other long term (current) drug therapy
CPT/HCPCS: 31525; J2250; J0330; J1100; J2405; J3010; J2704; J1170; J2001

== ENCOUNTER → 2022-08-31 | Outpatient (CLI) | payer MEDICARE, OTHER ==
[2022-08-31 13:05] VITALS: BP 119/62; PULSE 70; RESP 18
--- NOTE | 2022-08-31 14:27 | P.PAINPG ---
PQRS Measure Charge Sheet Comment: A 62 yr old female with a history of severe and chronic low back pain secondary to lumbar degenerative disc diseases and lumbar spondylosis with facet arthropathy without myelopathy presents today for evaluation s/p BL SI injections. Pt states she experienced 70% relief x 2 wk s/p procedure. Pain level is currently at 5/10 in intensity, constant, localized in lower lumbar spine, sore in character w shooting towards the BLEs. Pain is provoked as high as 10/10 by standing/ walking for periods of 30 min or more. Pain is alleviated with PT currently, home stretches, massages as needed, heat, meds (Percocet, Neurontin, Flexeril), voltaren gel without relief, repositioning and rest. Interventional pain procedures completed include BL SI injection Patient is currently on Percocet, Neurontin, Flexeril, Voltaren gel Patient denies any side effects of the medication(s), denies excessive drowsiness or sleepiness, denies suicidal ideation and reports that the current pain medication is helping to control the pain and improve activities of daily living. Patient denies any motor or sensory deficits. Patient denies any fever or night sweats, denies any change in the bowel movements or urination. Physical Examination: -Constitutional: Cooperative. Not in acute distress . - Neurologic: Cranial nerve II to XII intact. No focal neurological deficits. - Psychatric: Alert & oriented x 3. Matching mood & appropriate affect. Judgment and insight intact. - Musculoskeletal: Cervical spine: Muscle bulk/ tone/ strength in the bilateral upper extremities normal Vertebral body tenderness to palpation over Spurling test positive Distraction test positive Facet loading test positive Thoracic spine Muscle bulk / tone/ strength in the bilateral paraspinal muscles normal Vertebral body tender to palpation over Facet loading test positive Lumbar spine: Motor bulk/ tone/ strength lower extremities , thigh and legs : 5/5 Deep tendon reflexes : Normal Knee Jerk. Normal Ankle Jerk . Vertebral body tenderness to palpation over Positive over BL L4-L5, L5-S1 w TTP over facets Straight Leg Raise: positive at 30 degrees right side/ left side Gaenslen's Test positive Sacral spine : Severe tenderness over the Sacroiliac joint: right side / left side Range of motion: Flexion of the lumbar spine <60 degrees Range of motion: Extension of the lumbar spine <20 degrees Gaenslen's Test positive Tal's Test positive Jaja test: positive right side / left side Thigh Thrust Test Sacral Thrust Test Assessment and plan: Chronic low back pain secondary to lumbar degenerative disc disease , lumbar spondylosis with facet arthropathy without myelopathy Recommendation of BL MBB L4-L5, L5-S1 #1. May need a series of injections, up until RFA, for optimal pain relief. Risks, benefits of procedure discussed and pt verbalized understanding. Admits to anticoagulant use or medical history of diabetes. Protocol for discontinuation/ continuation of medications mick procedure discussed. All patient questions answered I have spent less than 30 minutes on patient care today. Dr Solano was available by phone for the evaluation of this patient. The time was used to review the medical records including relevant urine studies and Prescription history (MAPs), review of the available imaging, evaluation and examination of the patient, coordination of care with the medical staff and if applicable referring physicians, as well as creation of the medical record - Pain Location Lower Back Non-Pharmacological Interventions: Heat, Home Exercise, Inactivity, Massage, Physical Therapy, Position/Reposition, Stretching Pharmacological Interventions: PRN Medication, Scheduled Medication, Topical Medication PQRS Narrative: Smoking Status Never smoker Home Medications: Ambulatory Orders Gabapentin [Neurontin] 800 mg PO BID 08/02/17 DULoxetine HCL [Cymbalta] 30 mg PO BID 03/06/18 Naproxen 500 mg PO DAILY 09/06/19 lisinopriL [Zestril] 10 mg PO QAM 09/06/19 Atorvastatin [Lipitor] 10 mg PO HS 04/21/22 Bisoprolol-Hctz 10-6.25 mg [Ziac 10-6.25 MG] 1 tab PO QAM 04/21/22 Cyclobenzaprine [Flexeril] 15 mg PO HS 04/21/22 Donepezil [Aricept] 10 mg PO HS 04/21/22 Levothyroxine Sodium [Synthroid] 100 mcg PO HS 04/21/22 Memantine [Namenda] 5 mg PO BID 04/21/22 Ofatumumab [Kesimpta Pen] 20 mg SQ QMONTHLY 04/21/22 oxyCODONE HCL/ACETAMINOPHEN [Percocet 10-325 mg] 1 - 2 tab PO Q6HR PRN 05/30/22 Ascorbic Acid [Vitamin C] 500 mg PO DAILY 08/09/22 Cholecalciferol [Vitamin D3 (25 Mcg = 1000 Iu)] 50 mcg PO DAILY 08/09/22 Fish Oil/Dha/Epa [Fish Oil 1,200 mg Fish Oil] 1 each PO DAILY 08/09/22 Omeprazole 40 mg PO HS 08/09/22 Zinc Gluconate [Zinc] 50 mg PO BID 08/09/22 Raloxifene [Evista] 60 mg PO DAILY 08/24/22 Controlled Substance Measures - Controlled Substance Measures Is patient prescribed a controlled substance at discharge?: No
== END ==
LOC: PNWHC3 12:46
PROVIDERS: ATTEND Specialist
DX: M47.816 Spondylosis without myelopathy or radiculopathy, lumbar region (principal); M51.36 Other intervertebral disc degeneration, lumbar region; G89.29 Other chronic pain; Z79.01 Long term (current) use of anticoagulants; E11.9 Type 2 diabetes mellitus without complications; Z79.4 Long term (current) use of insulin; Z88.8 Allergy status to other drugs, medicaments and biological substances
CPT/HCPCS: 99211

== ENCOUNTER → 2023-05-18 | Outpatient (CLI) | payer MEDICARE, OTHER ==
--- NOTE | 2023-05-19 21:42 | MM ---
Reason for Exam: Screening (asymptomatic). Last screening mammogram was performed 12 month(s) ago. Patient History: Menarche at age 12. First Full-Term at age 23. Left ovary removed at age 34. Right ovary removed at age 34. Hysterectomy at age 34. Postmenopausal. Estrogen for 1 year from age 34 until age 35. Maternal aunt had breast cancer. Risk Values: Lisha 5 year model risk: 1.4%. NCI Lifetime model risk: 6.2%. Prior Study Comparison: 01/28/2021 Bilateral Diagnostic Mammogram, [facility]. 04/21/2021 Right Diagnostic Mammogram, [facility]. 05/17/2022 Bilateral MG 3D screening mammo w/cad, [facility]. Tissue Density: There are scattered fibroglandular densities. Findings: Analyzed By CAD. There is no suspicious group of microcalcifications or new suspicious mass in either breast. Overall Assessment: Negative, BI-RAD 1 Management: Screening Mammogram of both breasts in 1 year. . Patient should continue monthly self-breast exams. A clinical breast exam by your physician is recommended on an annual basis. This exam should not preclude additional follow-up of suspicious palpable abnormalities. Note on Lisha scores and lifetime risk: 1. A Lisha score greater than 3% is considered moderate risk. If this is the case, consider specialist referral to assess eligibility for a risk reducing agent. 2. If overall lifetime risk for the development of breast cancer is 20% or higher, the patient may qualify for future screening with alternating mammogram and breast MRI. Electronically signed and approved by: Kimberley Fleming M.D. Radiologist
== END | disposition home or self-care (01) ==
LOC: RADMAMWWP 12:27
PROVIDERS: ATTEND Family Medicine
DX: Z12.31 Encounter for screening mammogram for malignant neoplasm of breast (principal); Z78.0 Asymptomatic menopausal state; Z80.3 Family history of malignant neoplasm of breast
CPT/HCPCS: 77063; 77067

== ENCOUNTER → 2023-09-12 | Outpatient (CLI) | payer MEDICARE, OTHER ==
--- NOTE | 2023-09-13 21:51 | CT ---
EXAMINATION TYPE: CT chest wo con DATE OF EXAM: 09/12/2023 COMPARISON: 09/13/2023 HISTORY: 63-year-old female R91.1, f/u nodules TECHNIQUE: Contiguous axial scanning of the chest without IV contrast. Coronal/sagittal reconstructio ns performed. CT DLP: 517mGycm. Automatic exposure control utilized for a dose reduction. FINDINGS: The heart is normal size without pericardial effusion. Aorta is normal caliber with conventional branching anatomy. No thoracic lymphadenopathy by CT size criteria. Mild biapical pleural-parenchymal scarring. Minimal 4 mm nodularity left mid lung along the major fissure remains unchanged, likely intrafissural lymph node. 4 mm lateral left lower lobe pulmonary nodule, axial image 39 remains unchanged and is benign. No consolidation or pleural effusion. There is a small hiatal hernia. Visualized upper abdomen otherwise shows some focal fat along the ant erior falciform ligament and cholecystectomy clips. Bones: Mild multilevel degenerative disc disease. Anterior endplate spondylosis upper thoracic spine and lower thoracic spine. Incidental small lipoma within the left subscapularis muscle measuring 2.3 cm. IMPRESSION: 1. A couple 4 mm pulmonary nodules on the left remain unchanged back to 2019 compatible with a benign etiology. No new or suspicious pulmonary nodules seen. 2. Small hiatal hernia.
== END | disposition home or self-care (01) ==
LOC: RADCTMAIN 12:19
PROVIDERS: ATTEND Family Medicine
DX: K44.9 Diaphragmatic hernia without obstruction or gangrene (principal); R91.8 Other nonspecific abnormal finding of lung field
CPT/HCPCS: 71250

== ENCOUNTER → 2023-12-01 | Outpatient (CLI) | payer MEDICARE ==
[2023-12-01 18:45] LABS: HCT 41.7 % (37.2-46.3); HGB 13.9 g/dL (12.0-15.0); MCH 30.9 pg (27.0-32.0); MCHC 33.3 g/dL (32.0-37.0); MCV 92.7 FL (80.0-97.0); Mean Platelet Volume 10.8 FL (9.5-12.2); NRBC Per 100 WBC 0 X 10*3/uL (0.00-0.01); Platelet Count 264 X 10*3/uL (140-440); RDW 13.4 % (11.5-14.5); WBC 5.47 X 10*3/uL (4.50-10.00)
[2023-12-01 18:57] LABS: Blood Urea Nitrogen 13.9 mg/dL (9.0-27.0); Carbon Dioxide 24.9 mmol/L (21.6-31.8); Chloride 106 mmol/L (96-109); Potassium 4.1 mmol/L (3.5-5.5); Sodium 141 mmol/L (135-145)
== END | disposition home or self-care (01) ==
LOC: LABPAT 11:52
PROVIDERS: ATTEND Internal Medicine
DX: Z01.812 Encounter for preprocedural laboratory examination (principal); R07.9 Chest pain, unspecified
CPT/HCPCS: 36415; 80051; 82565; 84520; 85027

== ENCOUNTER → 2023-12-04 | Day surgery (SDC) | payer MEDICARE ==
[~2023-12-04] MED LIST changes: +ALPRAZolam 0.25 MG TAB PO PRN; +ALPRAZolam 0.5 MG TAB PO PRN; +ASPIRIN 325 MG TAB PO STA; +HEPARIN SODIUM 1,000 UN/ML (10ML VL) IVP ONE; +HEPARIN SODIUM 1,000 UN/ML (10ML VL) ONE; -HYDROmorphone 0.5 MG/0.5 ML SYRINGE IVP PRN; +IOPAMIDOL-370 100ML BTL IVP ONE; -LACTATED RINGERS 1,000 ML IV SCH; +LIDOCAINE 1% INJ 10MG/ML (20 ML MDV) ONE; +LIDOCAINE 1% INJ 10MG/ML (20 ML MDV) SQ ONE; -MIDAZOLAM 2 MG/2 ML VIAL IV PRN; +MIDAZOLAM 2 MG/2 ML VIAL IVP ONE; +NITROGLYCERIN SL TABS 0.4 MG TAB SUBLINGUAL PRN; -ONDANSETRON 4 MG/2 ML VIAL IVP ONE; -Pre Op ABX Message 1 EACH MISC MISCELLANE ONE; -SCOPOLAMINE 1 MG/72 HR PATCH TRANSDERM ONE; +SODIUM CHLORIDE 0.9% 1,000 ML in EMPTY BAG 1 BAG IV SCH; +VERAPAMIL 2.5 MG/ML 2 ML AMP ONE; +VERAPAMIL SYRINGE (5 MG/10 ML) INTRAARTER ONE; +fentaNYL (PF) 50 MCG/ML 2 ML AMP IVP ONE; +fentaNYL (PF) 50 MCG/ML 2 ML AMP ONE
[2023-12-04 09:41] VITALS: RESP 18; TEMP 97.3
--- NOTE | 2023-12-04 11:20 | P.CARDCATH ---
Description of Procedure: PROCEDURES PERFORMED: Left heart catheterization, bilateral coronary angiography, ultrasound guided arterial access INDICATION: Abnormal stress test CONSENT:I have discussed the risks, benefits and alternative therapies for the above-mentioned procedure and for both sedation/analgesia as well as necessary blood product administration, if indicated, as they pertain to this patient. The patient has indicated understanding and acceptance of the risks and procedures discussed. PROCEDURE: After the risks, benefits and alternatives of the above mentioned procedure explained in detail with the patient, informed consent was obtained. Patient was taken to the catheterization lab and prepped and draped in usual fashion. Ultrasound guidance was used to assess for arterial access. 1% lidocaine was used to anesthetize the right radial artery. A 6-Trinidadian sheath was placed in the right radial artery using modified Seldinger technique and ultrasound guidance. Left coronary angiography was performed with a 5-Trinidadian JL 3.5 catheter and right coronary angiography was performed with a 5-Trinidadian FR5 catheter in various views. A 5-Trinidadian FR5 catheter was inserted into the left ventricle and pressure measurements were obtained. The right radial sheath was removed and a TR band was placed with hemostasis achieved. The patient to lerated the procedure well. Patient was transported back to the post catheterization holding area in stable condition. Conscious Sedation: Patient was monitored under the direct supervision of myself for conscious sedation using Versed and fentanyl for a total duration of 10 minutes HEMODYNAMICS: Aorta: 140/82 LV: 145/2, LVEDP 5 SELECTIVE CORONARY ARTERIOGRAPHY: LEFT MAIN: The left main is a large caliber vessel which bifurcates into the LAD and circumflex. There is no significant stenosis. LEFT ANTERIOR DESCENDING CORONARY ARTERY: LAD is a large caliber vessel which wraps around to the apex. There is mild mid LAD 20% stenosis and otherwise mild luminal irregularities LEFT CIRCUMFLEX CORONARY ARTERY: Left circumflex is a moderate caliber vessel without significant stenosis. RIGHT CORONARY ARTERY: The right coronary artery is a large caliber vessel which gives off a PDA and PLV branch and is the dominant vessel. There is no significant stenosis. FINAL IMPRESSION: 1. Relatively normal coronary arteries as described above other than mid LAD 20% stenosis and mild luminal irregularities 2. Low normal left sided filling pressures PLAN: 1. Aggressive risk factor modification per most recent ACC/AHA guidelines. 2. Follow-up in the office in 1-2 weeks.
[2023-12-04 13:24] VITALS: BP 148/64
[2023-12-04 14:20] VITALS: PULSE 68
== END ==
LOC: CATHCVL 08:40
PROVIDERS: ATTEND Internal Medicine
DX: R94.39 Abnormal result of other cardiovascular function study (principal); E03.9 Hypothyroidism, unspecified; G35 Multiple sclerosis; Z79.890 Hormone replacement therapy; Z79.899 Other long term (current) drug therapy
CPT/HCPCS: 93458; 76937; 99152; C1769; C1894; J2250; J2001; J3010; J1644; Q9967

== ENCOUNTER → 2024-06-05 | Outpatient (CLI) | payer MEDICARE ==
--- NOTE | 2024-06-07 08:15 | MM ---
Reason for Exam: Screening (asymptomatic). Last screening mammogram was performed 12 month(s) ago. Patient History: Menarche at age 12. First Full-Term at age 23. Left ovary removed at age 34. Right ovary removed at age 34. Hysterectomy at age 34. Postmenopausal. Estrogen for 1 year from age 34 until age 35. Maternal aunt had breast cancer. Risk Values: Lisha 5 year model risk: 1.4%. NCI Lifetime model risk: 5.8%. Prior Study Comparison: 04/21/2021 Right Diagnostic Mammogram, [facility]. 05/17/2022 Bilateral MG 3D screening mammo w/cad, [facility]. 05/18/2023 Bilateral MG 3D screening mammo w/cad, [facility]. Tissue Density: There are scattered areas of fibroglandular density. Findings: Analyzed By CAD. There is no suspicious group of microcalcifications or new suspicious mass in either breast. Overall Assessment: Negative, BI-RAD 1 Management: Screening Mammogram of both breasts in 1 year. . Patient should continue monthly self-breast exams. A clinical breast exam by your physician is recommended on an annual basis. This exam should not preclude additional follow-up of suspicious palpable abnormalities. Note on Lisha scores and lifetime risk: 1. A Lisha score greater than 3% is considered moderate risk. If this is the case, consider specialist referral to assess eligibility for a risk reducing agent. 2. If overall lifetime risk for the development of breast cancer is 20% or higher, the patient may qualify for future screening with alternating mammogram and breast MRI. Electronically signed and approved by: Tommy Maxwell M.D. Radiologis
== END | disposition home or self-care (01) ==
LOC: RADMAMWWP 12:46
PROVIDERS: ATTEND Family Medicine
DX: Z12.31 Encounter for screening mammogram for malignant neoplasm of breast (principal); Z80.3 Family history of malignant neoplasm of breast; Z78.0 Asymptomatic menopausal state
CPT/HCPCS: 77063; 77067

== ENCOUNTER → 2024-06-05 | Outpatient (CLI) | payer MEDICARE ==
--- NOTE | 2024-06-05 14:19 | BD ---
EXAMINATION TYPE: Axial Bone Density DATE OF EXAM: 06/05/2024 CLINICAL HISTORY: 64 years old Female. ICD-10 CODE: M81.8 OTHER OSTEOPOROSIS Height: 62.5 in Weight: 188 lbs FRAX RISK QUESTIONS: Secondary Osteoporosis: 3. Menopause before 45: total hysterectomy age 35Current RISK FACTORS MEDICATIONS: Thyroid Medications: yes Which medication: Levothyroxine How Lon years Osteoporosis Medications: Which medication: Evista How Lon years EXAM MEASUREMENTS: Bone mineral densitometry was performed using the [employer]. Bone mineral density as measured about the Lumbar spine is: ----- L1-L4(G/cm2): 0.972 T Score Values are as follows: ----- L1: -3.1 ----- L2: -2.7 ----- L3: -1.1 ----- L4: -0.9 ----- L1-L4: -1.7 Z Score Values are as follows: ----- L1: -2.3 ----- L2: -1.9 ----- L3: -0.2 ----- L4: -0.1 ----- L1-L4: -0.9 Bone mineral density has: Increased 11.1% since study of: 12/21/2017 Bone mineral density about the R hip (g/cm2): 0.941 Bone mineral density about the L hip (g/cm2): 0.953 T Score values are as follows: -----R Neck: -0.7 -----L Neck: -0.6 -----R Total: -0.5 -----L Total: -0.4 Z Score values are as follows: -----R Neck: 0.3 -----L Neck: 0.3 -----R Total: 0.1 -----L Total: 0.2 Bone mineral density has: Decreased -4.1% since study of: 12/21/2017 FRAX%s: The graph provided illustrates a 6.9% chance for a major osteoporotic fx and a 0.3% chance fo r the hips probability for fx in 10 years time. IMPRESSION: Osteopenia (T Score between -2.5 and -1). There is slightly increased risk of fracture and the patient may be considered for treatment. Re-Screen 2-5 years. NOTE: T-SCORE=SD OF THE YOUNG ADULT MEAN.
== END | disposition home or self-care (01) ==
LOC: RADBDWWP 12:43
PROVIDERS: ATTEND Physician Assistant
DX: M85.89 Other specified disorders of bone density and structure, multiple sites (principal)
CPT/HCPCS: 77080